=== PATIENT | female | born 1945 | race Caucasian/White ===

== ENCOUNTER 2020-11-22 18:40 | Emergency (ER) | payer MEDICARE, SELFPAY ==
[2020-11-22 18:42] VITALS: BP 185/96; PULSE 91; RESP 15; TEMP 36.8; O2SAT 100; BMI 31.0
[2020-11-22 18:44] VITALS: BP 185/96; PULSE 90; RESP 15; O2SAT 99
--- NOTE | 2020-11-22 18:48 | RAD_ITS ---
STUDY: X-RAY - LEFT SHOULDER REASON FOR EXAM: Female, 75 years old. shoulder dislocation TECHNIQUE: 2 view(s) of the shoulder. COMPARISON: None. FINDINGS: Dislocated shoulder prosthesis is noted without definitive evidence for acute fracture. RAD/Shoulder min 2 Views IMPRESSION: Dislocated left shoulder prosthesis Electronically Signed: Parth Johnson MD at 19:31 EDT , Service support ,
[2020-11-22] MEDS: Morphine 4 MG/ML Syringe IV (19:09)
[2020-11-22] MEDS: Ondansetron 4 MG/2 ML Vial IV (19:09)
--- NOTE | 2020-11-22 19:11 | EX.ED.UPPERE ---
HPI History of Present Illness Chief Complaint: Upper Extremity Injury Narrative Narrative: 75-year-old female presenting with left shoulder pain. She has a history of bilateral shoulder replacements from [place] distantly. She states that intermittently she has a left shoulder dislocation. She denies any trauma but states she rolled over on her left side and her left shoulder dislocated. She usually can get these back into place. She is unable to do that today. She states that she just moved here from [place] on November 11. She denies any paresthesias. PFSH PFS Medical History Diabetes Former smoker Hyperlipidemia Hypertension Kidney disease Home Medications hydrocodone-acetaminophen 1 tab PO Q6H PRN 3 Days #12 tablet 11/22/20 [Rx Last Taken Unknown] Allergy/AdvReac Type Severity Reaction Status Date / Time Penicillins [PCN] Allergy PT UNSURE Verified 11/22/20 18:41 OF REACTION Surgical History History of replacement of both shoulder joints Social History Smoking Status: Former smoker ROS ROS ED Constitutional Constitutional ED: Denies chills or fever(s) Eyes Eyes: Denies blurry vision or change in vision ENT ENT ED: Denies rhinorrhea or sore throat Cardiovascular Cardiovascular: Denies chest pain or palpitations Respiratory/Chest Respiratory/Chest: Denies cough or dyspnea Gastrointestinal Gastrointestinal: Denies abdominal pain or nausea Genitourinary Genitourinary ED: Denies dysuria or hematuria Musculoskeletal Musculoskeletal: Reports other Details: Left shoulder pain Integumentary Denies Abrasions or rash Neurologic Neurologic: Denies headache(s), paresthesias or weakness EXAM Physical Exam Const Vital Signs: 11/22/20 18:42 11/22/20 18:44 Temperature 98.3 F Temperature Source Oral Pulse Rate 91 90 Respiratory Rate 15 15 Blood Pressure 185/96 H 185/96 H Blood Pressure Mean 125 125 Pulse Ox 100 99 Oxygen Delivery Method Room Air Room Air Positive well nourished General Appearance ED: NAD HEENT normocephalic and atraumatic Eyes PERRL and EOMs intact bilaterally Resp normal respiratory effort and clear to auscultation bilaterally Cardio regular rate and regular rhythm Extremity Extremity Narrative: Left shoulder obvious deformity with limited mobility. No sensory deficits. Left radial pulse 2+. Neuro oriented x3 Sensorium / Orientation: alert Psych mental status grossly normal Skin Lesions: no lesions Rashes: no rashes MDM MDM MDM Narrative Medical decision making narrative: Patient presenting with obvious dislocation of the left shoulder. On the left shoulder x-ray this does appear to be anterior and superior on my interpretation. The radiologist just read this as dislocated prosthesis. Patient was given IV morphine for pain initially. She was consented for conscious sedation with propofol. Risks and benefits were described to her. She acknowledges understanding. Her last meal was about 12 hours ago. Timeout was called prior to procedure. She was initially given a 40 mg burst of propofol which did sedate her mildly. She was given 20 mg increments of propofol with a total of 140 mg given. Patient was sedated thoroughly. Patient's left shoulder was reduced using traction with external rotation and also guiding the prosthesis with my left hand into position. Patient had range of motion while still sedated. Patient placed in a sling. Postreduction films were obtained and on my interpretation the post reduction films show good reduction of the left shoulder prosthesis. The radiologist does agree. Patient was given [place] for pain for home. She is given follow-up with orthopedics. Patient discharged home with a ride from family. Impression: 1. Left shoulder dislocation status post reduction Discharge Plan Triage Chief Complaint: Upper Extremity Injury ED Provider: Bertram Grady Dx/Rx/DC Orders Instructions: ED Dislocation: Shoulder (Reduced) Prescriptions: New hydrocodone-acetaminophen 5-325 mg tablet 1 tab PO Q6H PRN (Reason: pain) 3 Days Qty: 12 RF: 0 Primary Care Provider: Care Physician,No Primary Referrals: Jim Esteban DO [STAFF PHYSICIAN] - 3-5 Days Care Physician,No Primary [Primary Care Provider] - Disposition Disposition: Home, Self Care
[2020-11-22 19:44] VITALS: BP 158/91; BP 179/103; BP 198/86; BP 200/89; BP 91/62; PULSE 82; PULSE 87; PULSE 88; RESP 14; RESP 16; RESP 18; O2SAT 100; O2SAT 98; O2SAT 99
--- NOTE | 2020-11-22 19:57 | RAD_ITS ---
STUDY: X-RAY - LEFT SHOULDER REASON FOR EXAM: Female, 75 years old. post reduction TECHNIQUE: 2 view(s) of the shoulder. COMPARISON: 11/22/2020 FINDINGS: Previously noted dislocated left shoulder prosthesis has been reduced with quaker of joint to normal anatomic configuration. No associated fracture identified. RAD/Shoulder min 2 Views IMPRESSION: Status post reduction of left shoulder joint prosthesis. Electronically Signed: Parth Johnson MD at 20:37 EDT , Service support ,
[2020-11-22] MEDS: Propofol 200 MG/20 ML Vial IV BOLUS (20:09)
[2020-11-22 20:10] VITALS: BP 158/91; PULSE 84; RESP 18; O2SAT 97; O2SAT 98
[2020-11-22 21:51] VITALS: BP 146/79; PULSE 90; RESP 15; O2SAT 98
== END 2020-11-22 21:51 | disposition home or self-care (01) ==
PROVIDERS: Emergency Provider Student in an Organized Health Care Education/Training Program
DX: T84.028A Dislocation of other internal joint prosthesis, initial encounter (principal); Y79.2 Prosthetic and other implants, materials and accessory orthopedic devices associated with adverse incidents; Y92.9 Unspecified place or not applicable; E11.9 Type 2 diabetes mellitus without complications; I10 Essential (primary) hypertension; E78.5 Hyperlipidemia, unspecified; Z87.891 Personal history of nicotine dependence; Z96.612 Presence of left artificial shoulder joint
CPT/HCPCS: 23650; 73030; 96374; 96375; 99152; 99153; 99284; J7030; A4216; J2405

== ENCOUNTER 2020-11-26 08:15 | Emergency (ER) | payer MEDICARE, SELFPAY ==
[2020-11-26 08:16] VITALS: BP 176/91; PULSE 86; RESP 16; TEMP 36.9; O2SAT 96; BMI 31.6
--- NOTE | 2020-11-26 08:42 | RAD_ITS ---
STUDY: X-RAY - LEFT SHOULDER REASON FOR EXAM: Female, 75 years old. Pain, history of dislocation TECHNIQUE: 2 view(s) of the shoulder. COMPARISON: 11/30/2020 FINDINGS: Left shoulder prosthesis appears to be in stable alignment and position since previous exam allowing for the significant difference in technique. Normal acromioclavicular joint. Normal acromion. No evidence for acute fracture. The soft tissue structures are unremarkable. Normal visualized pulmonary apex. RAD/Shoulder min 2 Views IMPRESSION: Left shoulder prosthesis. No definite dislocation. Electronically Signed: Ryan Aguilar MD at 9:17 EDT Tel , Service support ,
--- NOTE | 2020-11-26 08:44 | EX.ED.UPPERE ---
HPI History of Present Illness HPI Narrative: Patient presents via EMS with left shoulder pain/shoulder dislocation. She states that she has history of previous dislocations. She was seen in the emergency department a few days ago, where she had a left shoulder dislocation. She states that she was supposed to follow-up with orthopedics yesterday, Saturday, but was confused and thought that yesterday was . She lives at home with her daughter who did not know of her appointment. She denies any fall or injury but states that this morning approximately an hour and 15 minutes ago, she was not wearing her sling and she was washing dishes, and her left shoulder dislocated. She states that it was out for approximately 15 minutes. Prior to EMS arrival, she states that her shoulder self relocated. She is right-hand dominant. She denies any fall onto her left shoulder, no other injury. Chief Complaint: Disclocation [facility] Medical History Diabetes Former smoker Hyperlipidemia Hypertension Kidney disease Home Medications hydrocodone-acetaminophen 1 tab PO Q6H PRN 3 Days #12 tablet 11/22/20 [Rx Last Taken Unknown] Allergy/AdvReac Type Severity Reaction Status Date / Time Penicillins [PCN] Allergy PT UNSURE Verified 11/26/20 08:18 OF REACTION Surgical History History of replacement of both shoulder joints Social History Smoking Status: Former smoker ROS ROS ED ROS Narrative Constitutional: No fever, no chills. HEENT: No sore throat. No neck pain. No loss of vision. No rhinorrhea. Cardiovascular: No chest pain. No palpitations. No pedal edema. Respiratory: No cough, no shortness of breath. Abdominal: No abdominal pain. No nausea. No vomiting. Genitourinary: No dysuria. No hematuria. Musculoskeletal: No myalgias. Left shoulder pain with dislocation, but reported relocation prior to arrival Neurologic: No headaches. No dizziness. No lightheadedness. Skin: No rash. No change in color. Psychiatric: No depression. No anxiety. EXAM Physical Exam Narrative Exam Narrative: Afebrile. Vital signs noted. HEENT: Normocephalic. Atraumatic. PERRL, EOMI. Neck soft and supple. No point tenderness or step off. Cardiovascular: Regular rate and rhythm. No murmurs, rubs, or gallops appreciated. Respiratory: No tachypnea. Lungs clear to auscultation bilaterally. Gastrointestinal: Abdomen soft, nontender, with normoactive bowel sounds. No rebound or guarding. Neurological: Awake. Alert. Nonfocal, nonlateralizing. Skin: No rash. Normal color. No pallor. Musculoskeletal: No pedal edema. Left upper extremity in sling. Diffuse tenderness to palpation left shoulder/proximal humerus. Neurovascularly intact with palpable radial pulse on the left. Able to oppose thumb. Range of motion limited secondary to sling, left shoulder Const Vital Signs: 11/26/20 08:16 Temperature 98.5 F Temperature Source Oral Pulse Rate 86 Respiratory Rate 16 Blood Pressure 176/91 H Blood Pressure Mean 119 Pulse Ox 96 Oxygen Delivery Method Room Air MDM MDM MDM Narrative Medical decision making narrative: Patient has not taken her morning medications. I am unsure as to what they are. Her blood pressure is slightly elevated but she is asymptomatic with it. X-rays were obtained of the left shoulder to ensure articulation. X-ray results have returned which show that it is stable allowing for different techniques, that there is no evidence of overt dislocation. I encouraged the patient to wear her sling and have limited use of her left shoulder so it does not dislocate again. She will continue her pain medications and her antihypertensives and follow-up with her orthopedic surgeon on Saturday. Return instructions to the emergency department were reviewed. I feel she be discharged safely home. Disposition is discharged home in stable condition. Discharge Plan Triage Chief Complaint: Disclocation ED Provider: Chris Dey Dx/Rx/DC Orders Clinical Impression: Shoulder dislocation, Encounter for medical screening examination, Hypertension Instructions: ED Dislocation: Shoulder (Reduced), ED Hypertension, Established, ED Sling and Swathe Prescriptions: No Action hydrocodone-acetaminophen 5-325 mg tablet 1 tab PO Q6H PRN (Reason: pain) 3 Days Qty: 12 RF: 0 Primary Care Provider: Care Physician,No Primary Referrals: Jim Esteban DO [STAFF PHYSICIAN] - 11/28/20 Care Physician,No Primary [Primary Care Provider] - Disposition Disposition: Home, Self Care Discharge Date/Time: 11/26/20 09:51
== END 2020-11-26 09:51 | disposition home or self-care (01) ==
PROVIDERS: Emergency Provider Emergency Medicine
DX: M24.412 Recurrent dislocation, left shoulder (principal); E11.9 Type 2 diabetes mellitus without complications; I10 Essential (primary) hypertension; E78.5 Hyperlipidemia, unspecified; N28.9 Disorder of kidney and ureter, unspecified; Z96.611 Presence of right artificial shoulder joint; Z96.612 Presence of left artificial shoulder joint; Z87.891 Personal history of nicotine dependence
CPT/HCPCS: 73030; 99284

== ENCOUNTER → 2020-12-16 14:09 | Outpatient (CLI) | payer MEDICARE, SELFPAY ==
[2020-12-16 14:59] LABS: Absolute Lymphocyte Count 2.01 X10^3/uL (0.83-4.51); Absolute Neutrophil Count 4.2 X10^3/uL (2.0-7.7); Basophil# 0.07 X10^3/uL; Eosinophil# 0.14 X10^3/uL; Hematocrit 37.8 % (37-47); Lymphocyte # 2.01 X10^3/ul (0.83-4.51); Lymphocyte % 28.4 % (19-41); Mean Corp Hgb Conc 31.7 g/dL (32-36); Mean Corpuscular Hgb 29.1 pg (27.0-32.0); Mean Corpuscular Volume 91.5 fL (81-99); Mean Platelet Vol. 12.1 fl (6.2-12.0); Monocyte# 0.56 X10^3/uL; Monocyte% 7.9 % (0-10); NRBC Flagged by Analyzer 0 % (0-5); Neutrophil # 4.24 X10^3/uL (2.7-7.7); Neutrophil % 59.9 % (47-70); Platelet Count 202 K/mm3 (150-450); RBC Distribution Width CV 15.3 % (11.6-14.6); RBC Distribution Width SD 51.3 fl (35.1-43.9); Red Blood Count 4.13 M/mm3 (4.2-5.4); White Blood Count 7.1 K/mm3 (4.4-11.0)
[2020-12-16 15:02] LABS: Erythrocyte Sedimentation Rate 14 mm/hr (0-30)
[2020-12-16 15:10] LABS: Anion Gap 9 (5-15); BUN 19 mg/dL (7-18); BUN/Creat Ratio 16.2 RATIO (10-20); CRP < 2.90 mg/L (0.0-3.0); Calcium,Total 8.2 mg/dL (8.5-10.1); Chloride 108 mmol/L (98-107); Creatinine, Serum 1.17 mg/dL (0.55-1.02); EST Glomerular Filtration Rate 48 mL/min (>60); Est Glom Filt Rate - Afr Amer 58 mL/min (>60); Glucose 214 mg/dL (74-106); Potassium 3.5 mmol/L (3.5-5.1); Sodium Level 141 mmol/L (136-145)
[2020-12-16 15:21] LABS: Hemoglobin A1c 6.4 % (3.8-5.6)
== END ==
PROVIDERS: Visit Provider Physician Assistant Surgical
DX: E11.69 Type 2 diabetes mellitus with other specified complication (principal); Z96.612 Presence of left artificial shoulder joint
CPT/HCPCS: 36415; 80048; 83036; 85025; 85652; 86140

== ENCOUNTER 2020-12-28 23:12 | Emergency (ER) | payer MEDICARE, SELFPAY ==
[2020-12-28 23:20] VITALS: BP 179/75; PULSE 83; RESP 18; TEMP 36.4; O2SAT 96; BMI 33.0
--- NOTE | 2020-12-28 23:36 | RAD_ITS ---
HISTORY: dislocation COMPARISON: November 26, 2020 FINDINGS: # of images incl. paperwork: 2 XR Shoulder Min 2 Views: SOFT TISSUES: No radiodense soft tissue foreign body. No abnormal soft tissue mineralization. OSSEOUS: Left shoulder arthroplasty with superior anterior dislocation of humeral prosthesis relative to the glenoid prosthesis. No fracture. Mild acromioclavicular osteoarthritis. No aggressive osseous lesion. BONE MINERALIZATION: Unremarkable. RAD/Shoulder min 2 Views IMPRESSION: Anterior superior dislocation of left glenohumeral arthroplasty. at 0014 Reported and signed by: Luis Gusman MD Electronically Signed: Luis Gusman MD at 0:13 EST Tel , Service support ,
[2020-12-29] MEDS: Morphine 4 MG/ML Syringe IV
[2020-12-29] MEDS: Ondansetron 4 MG/2 ML Vial IV (00:01)
--- NOTE | 2020-12-29 01:14 | EX.ED.UPPERE ---
HPI <Dr. Bertram Grady DO - Last Filed: 12/29/20 03:48> History of Present Illness Chief Complaint: Upper Extremity Injury Narrative Narrative: 75-year-old female presenting with left shoulder dislocation. Patient states this is a chronic issue. She rolled over in bed and dislocated. 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 She states she followed up with an orthopedic surgeon here in [place] but she cannot recall his name. Patient states that she is currently try to get a primary care physician established so he can she can get medically cleared for surgery to fix her left shoulder. [facility] <Dr. Bertram Grady DO - Last Filed: 12/29/20 03:48> [facility] Medical History Diabetes Former smoker Hyperlipidemia Hypertension Kidney disease Home Medications hydrocodone-acetaminophen 1 tab PO Q6H PRN 3 Days #12 tablet 11/22/20 [Rx Last Taken Unknown] allopurinol 100 mg tablet 100 mg PO BID 11/30/20 [History Last Taken Unknown] amlodipine 2.5 mg tablet 2.5 mg PO DAILY 11/30/20 [History Last Taken Unknown] aspirin 81 mg tablet,delayed release 81 mg PO DAILY 11/30/20 [History Last Taken Unknown] atorvastatin 20 mg tablet 20 mg PO DAILY 11/30/20 [History Last Taken Unknown] biotin 10,000 mcg capsule mcg PO 11/30/20 [History Last Taken Unknown] buspirone 5 mg tablet 5 mg PO BID 11/30/20 [History Last Taken Unknown] calcium carbonate 600 mg calcium (1,500 mg) tablet 600 mg PO DAILY 11/30/20 [History Last Taken Unknown] cholecalciferol (vitamin D3) 50 mcg (2,000 unit) capsule 50 mcg PO DAILY 11/30/20 [History Last Taken Unknown] denosumab 60 mg/mL subcutaneous syringe 60 mg SUBCUT [id number] 11/30/20 [History Last Taken Unknown] gabapentin 300 mg capsule 900 mg PO TID cap 11/30/20 [History Last Taken Unknown] glipizide 10 mg tablet 10 mg PO BID 11/30/20 [History Last Taken Unknown] leflunomide 20 mg tablet 20 mg PO DAILY PRN 11/30/20 [History Last Taken Unknown] levothyroxine 100 mcg capsule 100 mcg PO DAILY 11/30/20 [History Last Taken Unknown] magnesium 250 mg tablet 250 mg PO DAILY 11/30/20 [History Last Taken Unknown] mecobalamin (vitamin B12) 1,000 mcg disintegrating tablet,sublingual 1,000 mcg SUBLINGUAL DAILY 11/30/20 [History Last Taken Unknown] multivitamin with minerals-folic acid 200 mcg chewable tablet tab PO 11/30/20 [History Last Taken Unknown] pantoprazole 40 mg tablet,delayed release 40 mg PO DAILY 11/30/20 [History Last Taken Unknown] sitagliptin 50 mg tablet 100 mg PO DAILY tab 11/30/20 [History Last Taken Unknown] upadacitinib 15 mg tablet,extended release 24 hr 15 mg PO DAILY 11/30/20 [History Last Taken Unknown] hydrocodone-acetaminophen 1 tab PO Q6H PRN PRN 3 Days #10 tablet 12/29/20 [Rx Last Taken Unknown] Allergy/AdvReac Type Severity Reaction Status Date / Time Penicillins [PCN] Allergy PT UNSURE Verified 12/28/20 23:22 OF REACTION Surgical History History of replacement of both shoulder joints Social History household members: none housing: house pets and animals: Yes pets and animals: dog(s) Smoking Status: Former smoker alcohol intake: never what type of physical activity do you participate in: none do you feel safe at home: Yes ROS <Dr. Bertram Grady DO - Last Filed: 12/29/20 03:48> ROS ED Constitutional Constitutional ED: Denies fever(s) or subjective Eyes Eyes: Denies blurry vision or change in vision ENT ENT ED: Denies rhinorrhea Cardiovascular Cardiovascular: Denies chest pain or palpitations Respiratory/Chest Respiratory/Chest: Denies cough or dyspnea Gastrointestinal Gastrointestinal: Denies abdominal pain, nausea or vomiting Genitourinary Genitourinary ED: Denies dysuria or hematuria Musculoskeletal Musculoskeletal: Reports other Details: Left shoulder pain Integumentary Denies abscess or rash Neurologic Neurologic: Denies headache(s) or paresthesias Psychiatric Psychiatric: Denies anxiety or depression EXAM <Dr. Bertram Grady DO - Last Filed: 12/29/20 03:48> Physical Exam Const Vital Signs: 12/28/20 23:20 Temperature 97.6 F L Temperature Source Temporal Pulse Rate 83 Respiratory Rate 18 Blood Pressure 179/75 H Blood Pressure Mean 109 Pulse Ox 96 Oxygen Delivery Method Room Air Positive well nourished General Appearance ED: NAD HEENT normocephalic and atraumatic Resp normal respiratory effort and clear to auscultation bilaterally Cardio regular rate and regular rhythm Extremity Extremity Narrative: Obvious deformity left shoulder. Tender to palpation. Appears to be dislocated. Left upper extremity neurovascular intact with respect refill all 5 fingers Neuro oriented x3 Sensorium / Orientation: alert Psych mental status grossly normal Skin Lesions: no lesions Rashes: no rashes [facility] <Dr. Bertram Grady, DO - Last Filed: 12/29/20 03:48> [facility] Narrative Medical decision making narrative: Patient evaluated for shoulder dislocation. Due to patient volumes Dr. Rodas did do the reduction. Please see procedure note. Afterwards patient was reevaluated and feels well. Her pain is minimal. She was to be discharged home. My interpretation of the postreduction x-ray shows a successful reduction of the left shoulder dislocation. The radiologist does agree. Impression: 1. Left shoulder dislocation Radiography Diagnostic Testing: Clinical Impression(s) from Imaging Studies Shoulder X-Ray 12/28/20 23:36 IMPRESSION: Anterior superior dislocation of left glenohumeral arthroplasty. at 0014 Reported and signed by: Luis Gusman MD Electronically Signed: Luis Gusman MD at 0:13 EST Tel , Service support , <Dr. Jason Chen, DO - Last Filed: 12/31/20 15:59> [facility] Narrative Medical decision making narrative: X-rays of the left shoulder were reviewed. There are 2 views. On my interpretation, there is anterior superior dislocation of the left glenohumeral joint. There is no acute fracture. Radiologist also interpreted the x-rays and agrees. Patient was informed of the risks and benefits of conscious sedation. Patient states she has had this procedure done before. Patient understands the risks and benefits. Patient is agreeable to proceed with the sedation and reduction of the shoulder. Verbal and written consent were obtained. Patient was placed on continuous cardiac and pulse oximetry monitors. Patient was placed on oxygen. Patient was given a total of 130 mg of propofol. The left shoulder was reduced using traction countertraction technique. Patient was placed in a sling and swath. Repeat x-rays were obtained. Patient felt better after the procedure was performed. Patient became more awake and alert. Patient had no hypoxic episodes. Patient had no dysrhythmias. Patient was instructed to maintain a sling and swath. Patient was instructed to follow-up with orthopedics in 5 to 7 days. Patient understood and was agreeable with the plan. All questions were answered. <Dr. Jason Chen, DO - Last Filed: 12/31/20 15:59> Other Procedures Procedure(s): Reduction of left shoulder dislocation: The patient was consented for reduction of the shoulder under moderate sedation. Patient was given a total of 130 mg of propofol. The shoulder was reduced using traction countertraction technique. There were no hypoxic episodes. There were no cardiac dysrhythmias. Patient tolerated the procedure well. Repeat shoulder x-rays were obtained. The shoulder was adequately reduced. There are no acute fractures. Sling and swath was applied. Patient was awake and alert after the procedure. Discharge Plan Triage Chief Complaint: Upper Extremity Injury ED Provider: Bertram Grady Dx/Rx/DC Orders Clinical Impression: Recurrent dislocation of left shoulder Instructions: ED Dislocation: Shoulder (Reduced), ED Sling and Swathe Prescriptions: New hydrocodone-acetaminophen 5-325 mg tablet 1 tab PO Q6H PRN PRN (Reason: Pain) 3 Days Qty: 10 RF: 0 No Action allopurinol 100 mg tablet 100 mg PO BID RF: 0 amlodipine 2.5 mg tablet 2.5 mg PO DAILY RF: 0 atorvastatin 20 mg tablet 20 mg PO DAILY RF: 0 biotin 10,000 mcg capsule PO RF: 0 buspirone 5 mg tablet 5 mg PO BID RF: 0 gabapentin 300 mg capsule 900 mg PO TID RF: 0 glipizide 10 mg tablet 10 mg PO BID RF: 0 Januvia 50 mg tablet 100 mg PO DAILY RF: 0 levothyroxine 100 mcg capsule 100 mcg PO DAILY RF: 0 leflunomide 20 mg tablet 20 mg PO DAILY PRNRF: 0 pantoprazole 40 mg tablet,delayed release (DR/EC) 40 mg PO DAILY RF: 0 Rinvoq 15 mg tablet extended release 24 hr 15 mg PO DAILY RF: 0 Prolia 60 mg/mL syringe 60 mg subcut [id number] RF: 0 aspirin 81 mg tablet,delayed release (DR/EC) 81 mg PO DAILY RF: 0 mecobalamin (vitamin B12) 1,000 mcg tablet,disintegrating 1,000 mcg sublingual DAILY RF: 0 cholecalciferol (vitamin D3) 50 mcg (2,000 unit) capsule 50 mcg PO DAILY RF: 0 magnesium 250 mg tablet 250 mg PO DAILY RF: 0 Vitajoy Adult Multi 200 mcg tablet,chewable PO RF: 0 calcium carbonate [Calcium 600] 600 mg calcium (1,500 mg) tablet 600 mg PO DAILY RF: 0 hydrocodone-acetaminophen 5-325 mg tablet 1 tab PO Q6H PRN (Reason: pain) 3 Days Qty: 12 RF: 0 Primary Care Provider: Care Physician,No Primary Referrals: Raymon Rome DO [STAFF PHYSICIAN] - 5-7 Days Care Physician,No Primary [Primary Care Provider] - Disposition Disposition: Home, Self Care Discharge Date/Time: 12/29/20 04:12
[2020-12-29 02:43] VITALS: BP 170/64; BP 173/64; BP 217/152; PULSE 73; PULSE 78; PULSE 80; RESP 16; RESP 18; O2SAT 95; O2SAT 97; O2SAT 98
[2020-12-29 02:54] VITALS: BP 140/73; PULSE 71; RESP 17; O2SAT 95
--- NOTE | 2020-12-29 02:56 | RAD_ITS ---
HISTORY: Post reduction COMPARISON: December 28, 2020 FINDINGS: # of images incl. paperwork: 1 XR Shoulder 1 View: SOFT TISSUES: No radiodense soft tissue foreign body. No abnormal soft tissue mineralization. OSSEOUS: Normal alignment of left glenohumeral arthroplasty. Normal acromioclavicular alignment. No fracture. No daren-hardware lucency or evidence of hyperplasia . No erosion or periostitis. BONE MINERALIZATION: Unremarkable. RAD/Shoulder One View IMPRESSION: Successful reduction of left glenohumeral arthroplasty. No evidence of fracture. at 0324 Reported and signed by: Luis Gusman MD Electronically Signed: Luis Gusman MD at 3:23 EST Tel , Service support ,
[2020-12-29 03:01] VITALS: BP 114/76; PULSE 71; RESP 17; O2SAT 93
[2020-12-29 03:02] VITALS: BP 114/76; O2SAT 94
[2020-12-29] MEDS: Propofol 200 MG/20 ML Vial IV BOLUS (03:05)
[2020-12-29 03:06] VITALS: BP 139/60; PULSE 71; RESP 14; O2SAT 93
[2020-12-29] MEDS: HYDROcodone Bitartrate/Apap 5/325 Tablet PO (04:11)
== END 2020-12-29 04:12 | disposition home or self-care (01) ==
PROVIDERS: Emergency Provider Student in an Organized Health Care Education/Training Program
DX: M24.412 Recurrent dislocation, left shoulder (principal); E11.9 Type 2 diabetes mellitus without complications; I10 Essential (primary) hypertension; E78.5 Hyperlipidemia, unspecified; Z79.82 Long term (current) use of aspirin; Z79.84 Long term (current) use of oral hypoglycemic drugs; Z79.890 Hormone replacement therapy; Z79.899 Other long term (current) drug therapy; Z87.891 Personal history of nicotine dependence; Z96.612 Presence of left artificial shoulder joint; Z96.611 Presence of right artificial shoulder joint
CPT/HCPCS: 23650; 73020; 73030; 96374; 96375; 99285; J7040; A4216; J2405

== ENCOUNTER 2021-01-01 03:23 | Emergency (ER) | payer MEDICARE, SELFPAY ==
[2021-01-01] VITALS (8 sets, daily range): BP systolic 179–241; BP diastolic 80–158; PULSE 69–86; RESP 16–18; TEMP 36.1; O2SAT 90–100; BMI 31.1
--- NOTE | 2021-01-01 03:32 | EX.ED.UPPERE ---
HPI History of Present Illness Chief Complaint: Upper Extremity Injury Detail of Chief Complaint: Recurrent left shoulder dislocation Informant: patient Onset/Context/Timing Onset: Today and Hours Context: Sudden Onset Timing: Continuous Quality of Pain: Sharp Current Severity: Moderate Maximum Severity: Moderate Associated Symptoms Associated Symptoms: Negative for Parasthesia and Weakness Narrative Narrative: 75-year-old female who has had bilateral reverse shoulder replacements. She had these done in [place]. Last several months she has had recurrent dislocations of the left shoulder. She is right-hand dominant. Tonight she was laying in bed rolled over in the left shoulder dislocated spontaneously. She denies any other complaints. She did not fall. This is happened several times before. Prior similar symptoms: Yes Recent Illness/Hospitalization: No PFSH PFSH Medical History Diabetes Former smoker Hyperlipidemia Hypertension Kidney disease Home Medications hydrocodone-acetaminophen 1 tab PO Q6H PRN 3 Days #12 tablet 11/22/20 [Rx Last Taken Unknown] allopurinol 100 mg tablet 100 mg PO BID 11/30/20 [History Last Taken Unknown] amlodipine 2.5 mg tablet 2.5 mg PO DAILY 11/30/20 [History Last Taken Unknown] aspirin 81 mg tablet,delayed release 81 mg PO DAILY 11/30/20 [History Last Taken Unknown] atorvastatin 20 mg tablet 20 mg PO DAILY 11/30/20 [History Last Taken Unknown] biotin 10,000 mcg capsule mcg PO 11/30/20 [History Last Taken Unknown] buspirone 5 mg tablet 5 mg PO BID 11/30/20 [History Last Taken Unknown] calcium carbonate 600 mg calcium (1,500 mg) tablet 600 mg PO DAILY 11/30/20 [History Last Taken Unknown] cholecalciferol (vitamin D3) 50 mcg (2,000 unit) capsule 50 mcg PO DAILY 11/30/20 [History Last Taken Unknown] denosumab 60 mg/mL subcutaneous syringe 60 mg SUBCUT [id number] 11/30/20 [History Last Taken Unknown] gabapentin 300 mg capsule 900 mg PO TID cap 11/30/20 [History Last Taken Unknown] glipizide 10 mg tablet 10 mg PO BID 11/30/20 [History Last Taken Unknown] leflunomide 20 mg tablet 20 mg PO DAILY PRN 11/30/20 [History Last Taken Unknown] levothyroxine 100 mcg capsule 100 mcg PO DAILY 11/30/20 [History Last Taken Unknown] magnesium 250 mg tablet 250 mg PO DAILY 11/30/20 [History Last Taken Unknown] mecobalamin (vitamin B12) 1,000 mcg disintegrating tablet,sublingual 1,000 mcg SUBLINGUAL DAILY 11/30/20 [History Last Taken Unknown] multivitamin with minerals-folic acid 200 mcg chewable tablet tab PO 11/30/20 [History Last Taken Unknown] pantoprazole 40 mg tablet,delayed release 40 mg PO DAILY 11/30/20 [History Last Taken Unknown] sitagliptin 50 mg tablet 100 mg PO DAILY tab 11/30/20 [History Last Taken Unknown] upadacitinib 15 mg tablet,extended release 24 hr 15 mg PO DAILY 11/30/20 [History Last Taken Unknown] hydrocodone-acetaminophen 1 tab PO Q6H PRN PRN 3 Days #10 tablet 12/29/20 [Rx Last Taken Unknown] Allergy/AdvReac Type Severity Reaction Status Date / Time Penicillins [PCN] Allergy PT UNSURE Verified 01/01/21 03:28 OF REACTION Surgical History History of replacement of both shoulder joints Social History household members: none housing: house pets and animals: Yes pets and animals: dog(s) Smoking Status: Former smoker alcohol intake: never what type of physical activity do you participate in: none do you feel safe at home: Yes ROS ROS ED ROS Narrative Denies recent illness. Review of Systems ROS Unobtainable: Denies due to encephalopathy Constitutional Constitutional ED: Denies fever(s) Eyes Eyes: Denies change in vision ENT ENT ED: Denies ear pain Cardiovascular Cardiovascular: Denies chest pain Respiratory/Chest Respiratory/Chest: Denies dyspnea Gastrointestinal Gastrointestinal: Denies abdominal pain Genitourinary Genitourinary ED: Denies dysuria Musculoskeletal Musculoskeletal: Denies myalgias Integumentary Denies rash Neurologic Neurologic: Denies headache(s) Psychiatric Psychiatric: Denies depression Endocrine Endocrinology: Denies polyuria Hematologic/Lymphatic Hematologic/Lymphatic: Denies easy bruising Allergic/Immunologic Allergic/Immunologic ED: Denies urticaria EXAM Physical Exam Narrative Exam Narrative: 75-year-old female vital signs stable blood pressure is elevated 241/89 most likely secondary to her left shoulder pain. HEENT exam unremarkable. Neck nontender. Lungs clear to auscultation bilaterally. Heart regular rhythm no murmur. Abdomen soft nontender normal bowel sounds no peritoneal signs. Extremities right upper both lower extremities are nontender. Left shoulder is tender to palpation. Appears to have gross deformity. The left elbow forearm wrist and hand are nontender. Normal central sterilization technician strength and sensation. Neurologically she is awake and alert. Const Vital Signs: 01/01/21 03:25 Temperature 97 F L Temperature Source Temporal Pulse Rate 83 Respiratory Rate 18 Blood Pressure 241/89 H Blood Pressure Mean 139 Pulse Ox 97 Oxygen Delivery Method Room Air Positive well nourished and well developed; Negative for obese, cachectic, contractures or unkempt General Appearance ED: well developed and NAD; Negative for unkempt, cachectic, contractures, cyanotic or diaphoretic Nutritional Appearance: Negative for cachectic or obese HEENT Reports moist mucous membranes normocephalic and atraumatic; Negative for trauma or tenderness Eyes PERRL and EOMs intact bilaterally Neck full ROM and supple General: Negative for tenderness Chest Wall inspection of chest normal and palpation of chest normal Resp normal respiratory effort and clear to auscultation bilaterally Auscultation: Negative for rales, rhonchi or wheezes Cardio regular rate, regular rhythm, S1 normal heart sound, S2 normal heart sound and no murmurs GI non-tender, non-distended and no masses Auscultation: normoactive bowel sounds Palpation: soft; Negative for tender or guarding Back/Spine no CVA tenderness Extremity normal to inspection and full ROM Extremity Narrative: Except the left shoulder which appears to have a gross abnormality most likely dislocated. Left hand is neurovascularly intact with normal cap refill, touch sensation in 5-5 central sterilization technician strength. General Extremety ED: Negative for edema General Extremity: Negative for edema Neuro oriented x3 Sensorium / Orientation: alert, oriented to person, oriented to place and oriented to time Motor Exam: strength 5/5 throughout Psych mental status grossly normal Appearance: Negative for unkempt Mood & Affect: Negative for depressed or tearful Skin Lesions: no lesions Rashes: no rashes MDM MDM MDM Narrative Medical decision making narrative: 75-year-old with recurrent prosthetic left shoulder dislocations. She will be treated with IV morphine and Zofran for pain. X-ray being obtained. If the shoulder is dislocated which I suspect it will be reduced using traction countertraction and patient being consciously sedated with propofol. She last ate around 5 PM which was more than 10 hours ago. Post left shoulder reduction patient is doing well at 5:07 AM. She will be watched post conscious sedation. And discharged to home in a sling to follow-up with her orthopedic physician Dr. Joao Villegas. Radiography Diagnostic Testing: Left shoulder x-ray 2 views interpreted by myself shows and the radiologist shows a dislocated left shoulder prosthesis. Left shoulder x-ray #2 post reduction appears to have appropriate reduction of the prior shoulder dislocation interpreted by myself. Procedures Other Procedures Procedure(s): Left prosthetic shoulder dislocation reduction: Discussed procedure plan with patient. She had not eaten since 5 PM the night before. 11 hours ago. She has had no prior complications anesthetic. She has had this procedure done numerous times. She was initially given 60 of propofol then a second dose of 40 and then a third dose of 40 for a total of 140 mg. Entire time she was on the monitor and pulse oximeter. Using traction countertraction the dislocation was reduced. Post procedure films showed appropriate reduction. Patient woke up quickly and is currently resting comfortably. Discharge Plan Triage Chief Complaint: Upper Extremity Injury ED Provider: Terrance Balbuena Dx/Rx/DC Orders Clinical Impression: Shoulder dislocation, recurrent, Hx of reduction of closed dislocation, History of conscious sedation Instructions: ED Joint Dislocation, ED Dislocation: Shoulder (Reduced) Prescriptions: No Action allopurinol 100 mg tablet 100 mg PO BID RF: 0 amlodipine 2.5 mg tablet 2.5 mg PO DAILY RF: 0 atorvastatin 20 mg tablet 20 mg PO DAILY RF: 0 biotin 10,000 mcg capsule PO RF: 0 buspirone 5 mg tablet 5 mg PO BID RF: 0 gabapentin 300 mg capsule 900 mg PO TID RF: 0 glipizide 10 mg tablet 10 mg PO BID RF: 0 Januvia 50 mg tablet 100 mg PO DAILY RF: 0 levothyroxine 100 mcg capsule 100 mcg PO DAILY RF: 0 leflunomide 20 mg tablet 20 mg PO DAILY PRNRF: 0 pantoprazole 40 mg tablet,delayed release (DR/EC) 40 mg PO DAILY RF: 0 Rinvoq 15 mg tablet extended release 24 hr 15 mg PO DAILY RF: 0 Prolia 60 mg/mL syringe 60 mg subcut [id number] RF: 0 aspirin 81 mg tablet,delayed release (DR/EC) 81 mg PO DAILY RF: 0 mecobalamin (vitamin B12) 1,000 mcg tablet,disintegrating 1,000 mcg sublingual DAILY RF: 0 cholecalciferol (vitamin D3) 50 mcg (2,000 unit) capsule 50 mcg PO DAILY RF: 0 magnesium 250 mg tablet 250 mg PO DAILY RF: 0 Vitajoy Adult Multi 200 mcg tablet,chewable PO RF: 0 calcium carbonate [Calcium 600] 600 mg calcium (1,500 mg) tablet 600 mg PO DAILY RF: 0 hydrocodone-acetaminophen 5-325 mg tablet 1 tab PO Q6H PRN (Reason: pain) 3 Days Qty: 12 RF: 0 hydrocodone-acetaminophen 5-325 mg tablet 1 tab PO Q6H PRN PRN (Reason: Pain) 3 Days Qty: 10 RF: 0 Primary Care Provider: Care Physician,No Primary Referrals: Care Physician,No Primary [Primary Care Provider] - Activity Restrictions/Additional Instructions: Follow-up with the orthopedic physician to have your shoulder reevaluated. You may have to have this prior surgery revised so it does not keep dislocating. Tylenol for pain. The very careful with range of motion of the left shoulder you could re-dislocate it if you do much range of motion. Disposition Disposition: Home, Self Care
[2021-01-01] MEDS: Ondansetron 4 MG/2 ML Vial IV (03:39)
[2021-01-01] MEDS: morphine 8 MG/ML Syringe IV (03:40)
--- NOTE | 2021-01-01 03:55 | RAD_ITS ---
STUDY: X-RAY - LEFT SHOULDER REASON FOR EXAM: Female, 75 years old. Dislocation. TECHNIQUE: 2 view(s) of the shoulder. COMPARISON: December 29, 2020 at 2:56 AM. December 28, 2020. FINDINGS: Total left shoulder arthroplasty. Again noted is anterior superior dislocation of the humeral component relative to the glenoid component, similar in appearance to the study of December 28, 2020. No fracture or evidence of loosening. Normal visualized pulmonary apex. RAD/Shoulder min 2 Views IMPRESSION: Recurrent dislocation of the humeral component of a total shoulder arthroplasty. No fracture identified. Electronically Signed: Maik Ramsey MD at 4:16 EST , Service support ,
--- NOTE | 2021-01-01 04:56 | RAD_ITS ---
STUDY: X-RAY - LEFT SHOULDER REASON FOR EXAM: Female, 75 years old patient is status post closed reduction of dislocated shoulder prosthesis. TECHNIQUE: 2 view(s) of the shoulder. COMPARISON: Prereduction radiographs of the left shoulder dated 01/01/2021. FINDINGS: The patient has had a left shoulder arthroplasty. There is improved alignment of the prosthesis components compared to previous study. There is degenerative arthrosis of the acromioclavicular joint without inferior osseous spur formation. Normal acromion. There is demineralization of the humerus and visualized osseous structures. The soft tissue structures are unremarkable. There is no demonstrated fracture. Normal visualized pulmonary apex. RAD/Shoulder min 2 Views IMPRESSION: Technically successful closed reduction of dislocated shoulder prosthesis. Electronically Signed: Elizabet Sin MD at 5:45 EST , Service support ,
[2021-01-01] MEDS: Propofol 200 MG/20 ML Vial 40 MG IV BOLUS (05:04)
== END 2021-01-01 05:50 | disposition home or self-care (01) ==
PROVIDERS: Emergency Provider Emergency Medicine
DX: M24.412 Recurrent dislocation, left shoulder (principal); T84.028A Dislocation of other internal joint prosthesis, initial encounter; Y79.2 Prosthetic and other implants, materials and accessory orthopedic devices associated with adverse incidents; E11.9 Type 2 diabetes mellitus without complications; I10 Essential (primary) hypertension; E78.5 Hyperlipidemia, unspecified; Z79.82 Long term (current) use of aspirin; Z79.84 Long term (current) use of oral hypoglycemic drugs; Z79.890 Hormone replacement therapy; Z79.899 Other long term (current) drug therapy; Z87.891 Personal history of nicotine dependence; Z96.612 Presence of left artificial shoulder joint; Z96.611 Presence of right artificial shoulder joint
CPT/HCPCS: 23650; 73030; 96374; 96375; 99285; J7050; A4216; J2405

== ENCOUNTER 2021-01-22 18:34 | Emergency (ER) | payer MEDICARE, SELFPAY ==
[2021-01-22 18:35] VITALS: BP 167/92; PULSE 99; RESP 18; TEMP 36.2; O2SAT 100; BMI 28.1
[2021-01-22 18:57] LABS: Absolute Lymphocyte Count 1.16 X10^3/uL (0.83-4.51); Absolute Neutrophil Count 5.5 X10^3/uL (2.0-7.7); Basophil# 0.08 X10^3/uL; Basophil% 1.1 % (0-1); Eosinophil# 0.16 X10^3/uL; Eosinophils% 2.1 % (0-5); Hematocrit 38.4 % (37-47); Hemoglobin 12.3 g/dL (12.0-15.0); Lymphocyte # 1.16 X10^3/ul (0.83-4.51); Lymphocyte % 15.3 % (19-41); Mean Corpuscular Hgb 28.5 pg (27.0-32.0); Mean Corpuscular Volume 89.1 fL (81-99); Mean Platelet Vol. 10.9 fl (6.2-12.0); Monocyte# 0.65 X10^3/uL; Monocyte% 8.6 % (0-10); NRBC Flagged by Analyzer 0 % (0-5); Neutrophil # 5.47 X10^3/uL (2.7-7.7); Platelet Count 271 K/mm3 (150-450); RBC Distribution Width CV 14.7 % (11.6-14.6); RBC Distribution Width SD 47.9 fl (35.1-43.9); Red Blood Count 4.31 M/mm3 (4.2-5.4); White Blood Count 7.6 K/mm3 (4.4-11.0)
[2021-01-22 19:10] LABS: Anion Gap 12 (5-15); BUN 11 mg/dL (7-18); BUN/Creat Ratio 8.8 RATIO (10-20); Calcium,Total 9.4 mg/dL (8.5-10.1); Chloride 105 mmol/L (98-107); Creatinine, Serum 1.25 mg/dL (0.55-1.02); EST Glomerular Filtration Rate 44 mL/min (>60); Est Glom Filt Rate - Afr Amer 54 mL/min (>60); Glucose 220 mg/dL (74-106); Potassium 3.3 mmol/L (3.5-5.1); Sodium Level 139 mmol/L (136-145)
[2021-01-22 19:50] LABS: Bacteria 0 SEEN /hpf (None Seen); Mucous, Urine 0 SEEN /hpf (<or=2+); Red Blood Cells-Urine 0 SEEN /hpf (0-5); Squamous Epithelial Cells - UA 0 SEEN /hpf (5-10); White Blood Cells 0 SEEN /hpf (0-5)
[2021-01-22 19:55] LABS: Color, Urine Yellow (Yellow); Glucose, Dipstick Normal (Normal); Ketone-Dipstick 5 mg/dl (Negative); Leukocyte Esterase-Dipstick Negative /ul (Negative); Nitrite-Dipstick Negative (Negative); Occult Blood-Urine Negative /ul (Negative); Protein-Dipstick 30 mg/dl (Negative); Specific Gravity, Urine 1.015 (1.002-1.030); Urine Bilirubin Dipstick Negative (Negative); Urine Clarity Clear (Clear); Urine Urobilinogen Normal (Normal)
[2021-01-22] MEDS: Ondansetron 4 MG/2 ML Vial IV (20:18)
--- NOTE | 2021-01-22 20:35 | EDS_ITS ---
HPI History of Present Illness Chief Complaint: Nausea/Vomiting/Diarrhea Detail of Chief Complaint: Nausea and diarrhea for 1 week Informant: patient and family Onset/Context/Timing Onset: Weeks Context: Sudden Onset Timing: Continuous (Nausea has been continuous for 1 week) and Intermittent (Diarrhea is been intermittent 3-5 loose stools per night since onset) Quality: Watery Location: GI Current Severity: Mild Maximum Severity: Moderate Worsened by: Nothing Associated Symptoms Associated Symptoms: Thirst and dry mouth Narrative Narrative: Patient is a 75-year-old woman with history of recurrent left shoulder dislocation who presents with nausea x1 week. She does have history of diabetes. She denies history of gastroparesis. She also reports watery stool. She has not been in contact with anyone's been ill. She denies fever or chills. She denies headache. She denies visual, ocular auditory symptoms. She denies cardiac respiratory symptoms. She denies dysuria, frequency, urgency or hematuria. She denies decreased urine output. She denies blood or mucus in her diarrhea. She has not been on antibiotics recently. She has not noted a rash. Based on medication she must have a history of gout and hypertension as well. Prior similar symptoms: No PFSH PFSH Medical History Diabetes Former smoker Hyperlipidemia Hypertension Kidney disease Home Medications hydrocodone-acetaminophen 1 tab PO Q6H PRN 3 Days #12 tablet 11/22/20 [Rx Last Taken Unknown] allopurinol 100 mg tablet 100 mg PO BID 11/30/20 [History Last Taken Unknown] amlodipine 2.5 mg tablet 2.5 mg PO DAILY 11/30/20 [History Last Taken Unknown] aspirin 81 mg tablet,delayed release 81 mg PO DAILY 11/30/20 [History Last Taken Unknown] atorvastatin 20 mg tablet 20 mg PO DAILY 11/30/20 [History Last Taken Unknown] biotin 10,000 mcg capsule mcg PO 11/30/20 [History Last Taken Unknown] buspirone 5 mg tablet 5 mg PO BID 11/30/20 [History Last Taken Unknown] calcium carbonate 600 mg calcium (1,500 mg) tablet 600 mg PO DAILY 11/30/20 [History Last Taken Unknown] cholecalciferol (vitamin D3) 50 mcg (2,000 unit) capsule 50 mcg PO DAILY 11/30/20 [History Last Taken Unknown] denosumab 60 mg/mL subcutaneous syringe 60 mg SUBCUT [id number] 11/30/20 [History Last Taken Unknown] gabapentin 300 mg capsule 900 mg PO TID cap 11/30/20 [History Last Taken Unknown] glipizide 10 mg tablet 10 mg PO BID 11/30/20 [History Last Taken Unknown] leflunomide 20 mg tablet 20 mg PO DAILY PRN 11/30/20 [History Last Taken Unknown] levothyroxine 100 mcg capsule 100 mcg PO DAILY 11/30/20 [History Last Taken Unknown] magnesium 250 mg tablet 250 mg PO DAILY 11/30/20 [History Last Taken Unknown] mecobalamin (vitamin B12) 1,000 mcg disintegrating tablet,sublingual 1,000 mcg SUBLINGUAL DAILY 11/30/20 [History Last Taken Unknown] multivitamin with minerals-folic acid 200 mcg chewable tablet tab PO 11/30/20 [History Last Taken Unknown] pantoprazole 40 mg tablet,delayed release 40 mg PO DAILY 11/30/20 [History Last Taken Unknown] sitagliptin 50 mg tablet 100 mg PO DAILY tab 11/30/20 [History Last Taken Unknown] upadacitinib 15 mg tablet,extended release 24 hr 15 mg PO DAILY 11/30/20 [History Last Taken Unknown] hydrocodone-acetaminophen 1 tab PO Q6H PRN PRN 3 Days #10 tablet 12/29/20 [Rx Last Taken Unknown] Allergy/AdvReac Type Severity Reaction Status Date / Time Penicillins [PCN] Allergy PT UNSURE Verified 01/22/21 18:35 OF REACTION Surgical History History of replacement of both shoulder joints Social History household members: none housing: house pets and animals: Yes pets and animals: dog(s) Smoking Status: Former smoker alcohol intake: never what type of physical activity do you participate in: none do you feel safe at home: Yes ROS ROS ED Constitutional Constitutional ED: Denies chills, fever(s), subjective or sweats Eyes Eyes: Denies blurry vision, change in vision or diplopia ENT ENT ED: Denies ear pain, rhinorrhea or sore throat Cardiovascular Cardiovascular: Denies chest pain, orthopnea, palpitations or racing heartbeat Respiratory/Chest Respiratory/Chest: Denies cough, dyspnea, dyspnea on exertion, orthopnea or sputum Gastrointestinal Gastrointestinal: Denies abdominal pain, diarrhea, nausea or vomiting Genitourinary Genitourinary ED: Denies dysuria, hematuria or urinary frequency Musculoskeletal Musculoskeletal: Denies arthralgias, back pain, myalgias or neck pain Integumentary Denies Abrasions or rash Neurologic Neurologic: Reports weakness; Denies headache(s) or paresthesias Endocrine Endocrinology: Denies polydipsia, polyphagia or polyuria EXAM Physical Exam Const Vital Signs: 01/22/21 18:35 01/22/21 20:36 Temperature 97.2 F L Temperature Source Temporal Pulse Rate 99 Respiratory Rate 18 Blood Pressure 167/92 H Blood Pressure Mean 117 Pulse Ox 100 98 Oxygen Delivery Method Room Air Room Air Positive well nourished and well developed; Negative for obese, cachectic, contractures or unkempt General Appearance ED: well developed and NAD; Negative for unkempt, cachectic, contractures, cyanotic, diaphoretic or pallor Nutritional Appearance: Negative for cachectic or obese HEENT Reports TM's clear and dry mucous membranes Negative for trauma or tenderness Tympanic Membrane ED: Yes TM's clear Mouth ED: Yes dry mucous membranes Mouth: dry mucous membranes Eyes PERRL and EOMs intact bilaterally General Eye ED: Negative for pale conjunctiva or scleral icterus Neck no lymphadenopathy, supple and no JVD Resp normal respiratory effort and clear to auscultation bilaterally Cardio regular rate, regular rhythm, S1 normal heart sound, S2 normal heart sound and no murmurs GI normal to inspection, nondistended, normoactive bowel sounds, non-tender and non-distended Auscultation: normoactive bowel sounds Palpation: soft Back/Spine no CVA tenderness Cervical Spine: Negative for cervical spine tenderness Thoracic Spine / Upper Back: Negative for thoracic spinal tenderness or paraspinal muscle tenderness Extremity normal to inspection General Extremety ED: Negative for edema or tenderness General Extremity: Negative for edema Neuro oriented x3, CN's II-XII intact bilaterally and no sensory deficits noted Sensorium / Orientation: alert Motor Exam: Negative for strength 5/5 throughout Psych mental status grossly normal Appearance: Negative for unkempt Skin no rashes or lesions noted and no wounds General Skin Exam: Negative for jaundice or pallor MDM MDM MDM Narrative Medical decision making narrative: The patient having nausea and diarrhea need to evaluate for viral illness including Covid. CBC to assess white count and rule out anemia. Basic metabolic panel to assess renal function, anion gap and evaluate for hypokalemia. On exam she had tenderness in the right upper quadrant hepatic panel was added to the orders that were placed additionally by nursing staff. Lab Data Attestation: I reviewed the patient's lab results. Lab results narrative: Potassium is 3.3 which is below lower end of normal. P.o. potassium was ordered. Urine does reveal ketones consistent with poor caloric intake. Labs: Laboratory Results - last 24 hr 01/22/21 01/22/21 01/22/21 18:30 18:30 18:30 WBC 7.6 RBC 4.31 Hgb 12.3 Hct 38.4 MCV 89.1 MCH 28.5 MCHC 32.0 RDW Std Deviation 47.9 H RDW Coeff of Manpreet 14.7 H Plt Count 271 MPV 10.9 Immature Gran % (Auto) 0.900 Neut % (Auto) 72.0 H Lymph % (Auto) 15.3 L Brule % (Auto) 8.6 Eos % (Auto) 2.1 Baso % (Auto) 1.1 H Absolute Neuts (auto) 5.5 Absolute Lymphs (auto) 1.16 Nucleated RBC % 0 Sodium 139 Potassium 3.3 L Chloride 105 Carbon Dioxide 22.0 Anion Gap 12 BUN 11 Creatinine 1.25 H Estim Creat Clear Calc 38.40 Est GFR (MDRD) Af Amer 54 L Est GFR (MDRD) Non-Af 44 L BUN/Creatinine Ratio 8.8 L Glucose 220 H Calcium 9.4 Total Bilirubin 0.30 Direct Bilirubin 0.15 AST 18 ALT 17 Alkaline Phosphatase 77 Total Protein 7.0 Albumin 3.0 L Globulin 4.0 Urine Color Urine Clarity Urine pH Ur Specific Willards Urine Protein Urine Glucose (UA) Urine Ketones Urine Occult Blood Urine Nitrite Urine Bilirubin Urine Urobilinogen Ur Leukocyte Esterase Urine RBC Urine WBC Ur Squamous Epith Cells Urine Bacteria Urine Mucus 01/22/21 19:35 WBC RBC Hgb Hct MCV MCH MCHC RDW Std Deviation RDW Coeff of Manpreet Plt Count MPV Immature Gran % (Auto) Neut % (Auto) Lymph % (Auto) Brule % (Auto) Eos % (Auto) Baso % (Auto) Absolute Neuts (auto) Absolute Lymphs (auto) Nucleated RBC % Sodium Potassium Chloride Carbon Dioxide Anion Gap BUN Creatinine Estim Creat Clear Calc Est GFR (MDRD) Af Amer Est GFR (MDRD) Non-Af BUN/Creatinine Ratio Glucose Calcium Total Bilirubin Direct Bilirubin AST ALT Alkaline Phosphatase Total Protein Albumin Globulin Urine Color Yellow Urine Clarity Clear Urine pH 6.0 Ur Specific Willards 1.015 Urine Protein 30 H Urine Glucose (UA) Normal Urine Ketones 5 H Urine Occult Blood Negative Urine Nitrite Negative Urine Bilirubin Negative Urine Urobilinogen Normal Ur Leukocyte Esterase Negative Urine RBC 0 SEEN Urine WBC 0 SEEN Ur Squamous Epith Cells 0 SEEN Urine Bacteria 0 SEEN Urine Mucus 0 SEEN Discharge Plan Triage Chief Complaint: Nausea/Vomiting/Diarrhea ED Provider: Horace Rivera Dx/Rx/DC Orders Clinical Impression: Acute dehydration, Ketosis, Hypokalemia, Diarrhea Instructions: Dehydration, ED Diarrhea, Unknown Cause, ED Hypokalemia Prescriptions: No Action allopurinol 100 mg tablet 100 mg PO BID RF: 0 amlodipine 2.5 mg tablet 2.5 mg PO DAILY RF: 0 atorvastatin 20 mg tablet 20 mg PO DAILY RF: 0 biotin 10,000 mcg capsule PO RF: 0 buspirone 5 mg tablet 5 mg PO BID RF: 0 gabapentin 300 mg capsule 900 mg PO TID RF: 0 glipizide 10 mg tablet 10 mg PO BID RF: 0 Januvia 50 mg tablet 100 mg PO DAILY RF: 0 levothyroxine 100 mcg capsule 100 mcg PO DAILY RF: 0 leflunomide [Arava] 20 mg tablet 20 mg PO DAILY PRN (Reason: Pain) RF: 0 pantoprazole 40 mg tablet,delayed release (DR/EC) 40 mg PO DAILY RF: 0 Rinvoq 15 mg tablet extended release 24 hr 15 mg PO DAILY RF: 0 Prolia 60 mg/mL syringe 60 mg subcut [id number] RF: 0 aspirin 81 mg tablet,delayed release (DR/EC) 81 mg PO DAILY RF: 0 mecobalamin (vitamin B12) 1,000 mcg tablet,disintegrating 1,000 mcg sublingual DAILY RF: 0 cholecalciferol (vitamin D3) 50 mcg (2,000 unit) capsule 50 mcg PO DAILY RF: 0 magnesium 250 mg tablet 250 mg PO DAILY RF: 0 Vitajoy Adult Multi 200 mcg tablet,chewable PO RF: 0 calcium carbonate [Calcium 600] 600 mg calcium (1,500 mg) tablet 600 mg PO DAILY RF: 0 hydrocodone-acetaminophen 5-325 mg tablet 1 tab PO Q6H PRN (Reason: pain) 3 Days Qty: 12 RF: 0 hydrocodone-acetaminophen 5-325 mg tablet 1 tab PO Q6H PRN PRN (Reason: Pain) 3 Days Qty: 10 RF: 0 Primary Care Provider: Toyin Chau Referrals: Toyin Chau MD [Primary Care Provider] - 3-5 Days Disposition Disposition: Home, Self Care
[2021-01-22 20:36] VITALS: O2SAT 98
[2021-01-22 20:37] LABS: AST(SGOT) 18 U/L (15-37); Alanine Aminotransfer ALT/SGPT 17 U/L (13-56); Alkaline Phosphatase 77 U/L (45-117); Bilirubin, Direct 0.15 mg/dL (0.00-0.30)
[2021-01-22] MEDS: Potassium Chloride Oral Soln 20 MEQ/15 ML UDC 40 MEQ PO (21:52)
[2021-01-22 22:43] VITALS: BP 153/79; PULSE 70; RESP 17; O2SAT 98
== END 2021-01-22 22:46 | disposition home or self-care (01) ==
PROVIDERS: Emergency Provider Emergency Medicine; PCP Internal Medicine
DX: E86.0 Dehydration (principal); E87.6 Hypokalemia; R19.7 Diarrhea, unspecified; R11.2 Nausea with vomiting, unspecified; Z20.822 Contact with and (suspected) exposure to COVID-19; E88.89 Other specified metabolic disorders; E11.9 Type 2 diabetes mellitus without complications; Z79.82 Long term (current) use of aspirin; Z79.84 Long term (current) use of oral hypoglycemic drugs; Z87.891 Personal history of nicotine dependence; I10 Essential (primary) hypertension; E78.5 Hyperlipidemia, unspecified; Z96.612 Presence of left artificial shoulder joint; Z96.611 Presence of right artificial shoulder joint
CPT/HCPCS: 80048; 80076; 81001; 85025; 87426; 96361; 96374; 99283; J7030; J7050; A4216; J2405

== ENCOUNTER 2021-03-02 20:38 | Emergency (ER) | payer MEDICARE, SELFPAY ==
[2021-03-02 20:39] VITALS: BP 177/69; PULSE 102; RESP 18; TEMP 36.4; O2SAT 98; BMI 26.3
--- NOTE | 2021-03-02 21:03 | EKG12_ITS ---
Test Reason : GEN ILLNESS Blood Pressure : / mmHG Vent. Rate : 087 BPM Atrial Rate : 087 BPM P-R Int : 186 ms QRS Dur : 086 ms QT Int : 388 ms P-R-T Axes : 059 -39 050 degrees QTc Int : 466 ms Normal sinus rhythm Left axis deviation Anteroseptal infarct , age undetermined Abnormal ECG Confirmed by AYLIN MENDIOLA, STANSILAW ([id number]), greeting card editor RADAH WONG ([id number]) on 03/03/2021 1:26:13 PM Referred By: BRYANNA Confirmed By:STANISLAW VIERA MD
--- NOTE | 2021-03-02 21:10 | EX.ED.DYSGE1 ---
HPI History of Present Illness Chief Complaint: General Illness Informant: patient Onset/Context/Timing Onset: Weeks Context: Gradual Onset Timing: Continuous Current Severity: Mild Maximum Severity: Moderate Narrative Narrative: 76-year-old female history of hypertension, diabetes and chronic kidney disease. Recently moved up here from [place]. Says she has not felt well for the last 3 weeks. Decreased energy and increasing fatigue. Says when she walks across the room she is to sit down she gets so tired. She has had some diarrhea but no melena. No fever or chills. No nausea or vomiting. States she had a decreased appetite and has lost 23 pounds in the last 3 to 4 weeks. She previously weighed under 91 pounds and she is down to 168. She denies any urinary urgency nor frequency or dysuria. Prior similar symptoms: No Recent Illness/Hospitalization: No PFSH PFS Medical History Diabetes Former smoker Hyperlipidemia Hypertension Kidney disease Home Medications hydrocodone-acetaminophen 1 tab PO Q6H PRN 3 Days #12 tablet 11/22/20 [Rx Last Taken Unknown] allopurinol 100 mg tablet 100 mg PO BID 11/30/20 [History Last Taken Unknown] amlodipine 2.5 mg tablet 2.5 mg PO DAILY 11/30/20 [History Last Taken Unknown] aspirin 81 mg tablet,delayed release 81 mg PO DAILY 11/30/20 [History Last Taken Unknown] atorvastatin 20 mg tablet 20 mg PO DAILY 11/30/20 [History Last Taken Unknown] biotin 10,000 mcg capsule mcg PO 11/30/20 [History Last Taken Unknown] buspirone 5 mg tablet 5 mg PO BID 11/30/20 [History Last Taken Unknown] calcium carbonate 600 mg calcium (1,500 mg) tablet 600 mg PO DAILY 11/30/20 [History Last Taken Unknown] cholecalciferol (vitamin D3) 50 mcg (2,000 unit) capsule 50 mcg PO DAILY 11/30/20 [History Last Taken Unknown] denosumab 60 mg/mL subcutaneous syringe 60 mg SUBCUT [id number] 11/30/20 [History Last Taken Unknown] gabapentin 300 mg capsule 900 mg PO TID cap 11/30/20 [History Last Taken Unknown] glipizide 10 mg tablet 10 mg PO BID 11/30/20 [History Last Taken Unknown] leflunomide 20 mg tablet 20 mg PO DAILY PRN 11/30/20 [History Last Taken Unknown] levothyroxine 100 mcg capsule 100 mcg PO DAILY 11/30/20 [History Last Taken Unknown] magnesium 250 mg tablet 250 mg PO DAILY 11/30/20 [History Last Taken Unknown] mecobalamin (vitamin B12) 1,000 mcg disintegrating tablet,sublingual 1,000 mcg SUBLINGUAL DAILY 11/30/20 [History Last Taken Unknown] multivitamin with minerals-folic acid 200 mcg chewable tablet tab PO 11/30/20 [History Last Taken Unknown] pantoprazole 40 mg tablet,delayed release 40 mg PO DAILY 11/30/20 [History Last Taken Unknown] sitagliptin 50 mg tablet 100 mg PO DAILY tab 11/30/20 [History Last Taken Unknown] upadacitinib 15 mg tablet,extended release 24 hr 15 mg PO DAILY 11/30/20 [History Last Taken Unknown] hydrocodone-acetaminophen 1 tab PO Q6H PRN PRN 3 Days #10 tablet 12/29/20 [Rx Last Taken Unknown] levothyroxine 100 mcg PO DAILY #30 cap 03/02/21 [Rx Last Taken Unknown] Allergy/AdvReac Type Severity Reaction Status Date / Time Penicillins [PCN] Allergy PT UNSURE Verified 03/02/21 20:42 OF REACTION Surgical History History of replacement of both shoulder joints Social History household members: none housing: house pets and animals: Yes pets and animals: dog(s) Smoking Status: Former smoker alcohol intake: never what type of physical activity do you participate in: none do you feel safe at home: Yes ROS ROS ED ROS Narrative Generalized weakness and diarrhea. Fatigue. Review of Systems ROS Unobtainable: Denies due to encephalopathy Constitutional Constitutional ED: Denies chills or fever(s) Eyes Eyes: Denies change in vision ENT ENT ED: Denies ear pain, rhinorrhea or sore throat Cardiovascular Cardiovascular: Denies chest pain or palpitations Respiratory/Chest Respiratory/Chest: Denies cough or dyspnea Gastrointestinal Gastrointestinal: Reports diarrhea; Denies abdominal pain, nausea or vomiting Genitourinary Genitourinary ED: Denies dysuria or hematuria Musculoskeletal Musculoskeletal: Denies myalgias Integumentary Denies rash Neurologic Neurologic: Denies headache(s) Psychiatric Psychiatric: Denies depression Endocrine Endocrinology: Denies polyuria Allergic/Immunologic Allergic/Immunologic ED: Denies urticaria EXAM Physical Exam Narrative Exam Narrative: 76-year-old female no acute distress vital signs stable afebrile. Pulse ox 90% on room air. She does not look septic or toxic. She does not look significantly dehydrated. HEENT exam unremarkable. No facial droop. Normal speech. Moist mucous membranes. Lungs clear to auscultation bilaterally. Heart regular rhythm rate about 95 no murmur. Chest nontender. Abdomen soft nontender. Moving all 4 extremities. Normal business performance specialist strength bilaterally. Normal dorsi plantar flexion. Neurologically she is awake and alert with no focal motor deficits. Answering questions and following commands. Const Vital Signs: 03/02/21 20:39 03/02/21 21:37 Temperature 97.6 F L Temperature Source Temporal Pulse Rate 102 H Respiratory Rate 18 Respiratory Pattern Normal Blood Pressure 177/69 H Blood Pressure Mean 105 Pulse Ox 98 Oxygen Delivery Method Room Air Positive well nourished and well developed; Negative for obese, cachectic, contractures or unkempt General Appearance ED: well developed and NAD; Negative for unkempt, cachectic, contractures, cyanotic, diaphoretic or pallor Nutritional Appearance: Negative for cachectic or obese HEENT Reports moist mucous membranes Negative for trauma or tenderness Eyes PERRL and EOMs intact bilaterally General Eye ED: Negative for pale conjunctiva or scleral icterus Neck no lymphadenopathy, supple and no JVD General: Negative for tenderness Chest Wall inspection of chest normal and palpation of chest normal Resp normal respiratory effort and clear to auscultation bilaterally Effort and Inspection: Negative for pain with movement Auscultation: Negative for rales, rhonchi or wheezes Cardio regular rate, regular rhythm, S1 normal heart sound, S2 normal heart sound and no murmurs GI normal to inspection, nondistended, normoactive bowel sounds, non-tender, non-distended and no masses Inspection: Negative for abdominal distention Auscultation: normoactive bowel sounds Palpation: soft; Negative for tender, guarding or rebound tenderness present Back/Spine no CVA tenderness General Back: Negative for CVA tenderness Cervical Spine: Negative for cervical spine tenderness Thoracic Spine / Upper Back: Negative for thoracic spinal tenderness or paraspinal muscle tenderness Lumbar Spine / Lower Back: Negative for lumbar spinal tenderness Extremity normal to inspection General Extremety ED: Negative for edema or tenderness General Extremity: Negative for edema Neuro oriented x3 and CN's II-XII intact bilaterally Sensorium / Orientation: alert; Negative for orientation impaired, lethargic or stuporous Motor Exam: strength 5/5 throughout Psych mental status grossly normal Appearance: Negative for unkempt Attitude: No agitated Mood & Affect: Negative for depressed, anxious or tearful Skin no rashes or lesions noted, no wounds and No skin turgor normal General Skin Exam: Negative for elasticity normal, jaundice or pallor MDM MDM MDM Narrative Medical decision making narrative: 76-year-old female who has had increasing fatigue recently. Significant weight loss. She has no history of any malignancy other than skin cancer. Screening labs are being obtained. Exam is benign. Treated with IV fluids. Discussed with the patient and her son her lab results at 1030. She forgot to tell me that she does have a history of hypothyroidism and stopped her medications about a month ago. That is when she started feeling poorly. She will be restarted on Synthroid and follow-up with her primary care physician to have her TSH rechecked. If she is not improving we may have to look for other causes of her weight loss. Lab Data Attestation: I reviewed the patient's lab results. Lab results narrative: CBC unremarkable. White count of 5. Hemoglobin 13.2. Hematocrit 40. Platelets 234. Chemistries show potassium of 3.1 gap of 12 BUN of 15 creatinine 1.2 liver enzymes unremarkable. Glucose of 226. No significant change in her CBC or chemistries from other recent lab. The TSH is elevated 7.33. Labs: Laboratory Results - last 24 hr 03/02/21 03/02/21 21:30 21:30 WBC 5.9 RBC 4.66 Hgb 13.2 Hct 40.4 MCV 86.7 MCH 28.3 MCHC 32.7 RDW Std Deviation 46.7 H RDW Coeff of Manpreet 14.8 H Plt Count 234 MPV 11.3 Immature Gran % (Auto) 0.300 Neut % (Auto) 62.2 Lymph % (Auto) 23.4 [place] % (Auto) 11.1 H Eos % (Auto) 1.5 Baso % (Auto) 1.5 H Absolute Neuts (auto) 3.6 Absolute Lymphs (auto) 1.37 Nucleated RBC % 0 Sodium 136 Potassium 3.1 L Chloride 103 Carbon Dioxide 21.0 Anion Gap 12 BUN 15 Creatinine 1.22 H Estim Creat Clear Calc 38.75 Est GFR (MDRD) Af Amer 55 L Est GFR (MDRD) Non-Af 46 L BUN/Creatinine Ratio 12.3 Glucose 226 H Calcium 9.4 Total Bilirubin 0.50 AST 27 ALT 17 Alkaline Phosphatase 81 Total Protein 7.2 Albumin 3.0 L Globulin 4.2 Albumin/Globulin Ratio 0.7 L TSH 7.33 H Radiography Chest X-Ray - ED: 1 View, Read by ED Physician, Heart, Lungs, Mediastinum, Bony Structures, No Acute Disease and Chronic Changes Diagnostic Testing: Clinical Impression(s) from Imaging Studies Chest X-Ray 03/02/21 21:45 IMPRESSION: No acute disease. Electronically Signed: Kd Vo MD at 22:14 EST Tel , Service support , Chest x-ray portable 1 view shows no acute abnormality. Rhythm Strip Rhythm Strip: Sinus Rhythm Rate: 87 Ectopy: None EKG Initial EKG: Attestation: I personally reviewed and interpreted this EKG as follows: Interpretation: Sinus Rhythm and No Acute Injury Pattern Comments: Normal sinus rhythm rate 87 no acute signs of angina or ischemia. There may be an old OH present. There is no EKG available for comparison. Prior EKG tracings: not available for review Discharge Plan Triage Chief Complaint: General Illness ED Provider: Terrance Balbuena Dx/Rx/DC Orders Clinical Impression: Hypothyroidism, Medical non-compliance, Acute hypokalemia Instructions: ED Hypothyroidism Prescriptions: New levothyroxine 100 mcg capsule 100 mcg PO DAILY Qty: 30 RF: 0 No Action allopurinol 100 mg tablet 100 mg PO BID RF: 0 amlodipine 2.5 mg tablet 2.5 mg PO DAILY RF: 0 atorvastatin 20 mg tablet 20 mg PO DAILY RF: 0 biotin 10,000 mcg capsule PO RF: 0 buspirone 5 mg tablet 5 mg PO BID RF: 0 gabapentin 300 mg capsule 900 mg PO TID RF: 0 glipizide 10 mg tablet 10 mg PO BID RF: 0 Januvia 50 mg tablet 100 mg PO DAILY RF: 0 levothyroxine 100 mcg capsule 100 mcg PO DAILY RF: 0 leflunomide [Arava] 20 mg tablet 20 mg PO DAILY PRN (Reason: Pain) RF: 0 pantoprazole 40 mg tablet,delayed release (DR/EC) 40 mg PO DAILY RF: 0 Rinvoq 15 mg tablet extended release 24 hr 15 mg PO DAILY RF: 0 Prolia 60 mg/mL syringe 60 mg subcut [id number] RF: 0 aspirin 81 mg tablet,delayed release (DR/EC) 81 mg PO DAILY RF: 0 mecobalamin (vitamin B12) 1,000 mcg tablet,disintegrating 1,000 mcg sublingual DAILY RF: 0 cholecalciferol (vitamin D3) 50 mcg (2,000 unit) capsule 50 mcg PO DAILY RF: 0 magnesium 250 mg tablet 250 mg PO DAILY RF: 0 Vitajoy Adult Multi 200 mcg tablet,chewable PO RF: 0 calcium carbonate [Calcium 600] 600 mg calcium (1,500 mg) tablet 600 mg PO DAILY RF: 0 hydrocodone-acetaminophen 5-325 mg tablet 1 tab PO Q6H PRN (Reason: pain) 3 Days Qty: 12 RF: 0 hydrocodone-acetaminophen 5-325 mg tablet 1 tab PO Q6H PRN PRN (Reason: Pain) 3 Days Qty: 10 RF: 0 Primary Care Provider: Toyin Chau Referrals: Toyin Chau MD [Primary Care Provider] - 1-2 Weeks Activity Restrictions/Additional Instructions: Call for follow-up in her primary care physician either Dr. Chau or Dr. Mendez in 1 to 2 weeks to have your thyroid level rechecked. Take your thyroid medication every day. You cannot just stop this medication you will get very sick and not taking it. Disposition Disposition: Home, Self Care
[2021-03-02] MEDS: 0.9% Normal Saline 1,000 ML 1000 ML IV (21:37)
--- NOTE | 2021-03-02 21:45 | RAD_ITS ---
EXAM: XR CHEST, 1 VIEW CLINICAL INDICATION: weakness TECHNIQUE: Frontal view of the chest. This report was created using [email or web address] report generation technology. COMPARISON: None. FINDINGS: LUNGS AND PLEURAL SPACES: Unremarkable. No consolidation or edema. No pneumothorax. No effusion. HEART: Unremarkable. Cardiac silhouette not enlarged. MEDIASTINUM: Small to moderate size hiatal hernia suggested. BONES/JOINTS: Bilateral shoulder arthroplasties with satisfactory alignment and no hardware complications. Degenerative changes of the spine. SOFT TISSUES: Unremarkable. RAD/Chest 1 View (Portable) IMPRESSION: No acute disease. Electronically Signed: Kd Vo MD at 22:14 EST Tel , Service support ,
[2021-03-02 22:17] LABS: Absolute Lymphocyte Count 1.37 X10^3/uL (0.83-4.51); Absolute Neutrophil Count 3.6 X10^3/uL (2.0-7.7); Basophil# 0.09 X10^3/uL; Basophil% 1.5 % (0-1); Eosinophil# 0.09 X10^3/uL; Eosinophils% 1.5 % (0-5); Hematocrit 40.4 % (37-47); Hemoglobin 13.2 g/dL (12.0-15.0); Lymphocyte # 1.37 X10^3/ul (0.83-4.51); Lymphocyte % 23.4 % (19-41); Mean Corp Hgb Conc 32.7 g/dL (32-36); Mean Corpuscular Hgb 28.3 pg (27.0-32.0); Mean Corpuscular Volume 86.7 fL (81-99); Mean Platelet Vol. 11.3 fl (6.2-12.0); Monocyte# 0.65 X10^3/uL; Monocyte% 11.1 % (0-10); NRBC Flagged by Analyzer 0 % (0-5); Neutrophil # 3.64 X10^3/uL (2.7-7.7); Neutrophil % 62.2 % (47-70); Platelet Count 234 K/mm3 (150-450); RBC Distribution Width CV 14.8 % (11.6-14.6); RBC Distribution Width SD 46.7 fl (35.1-43.9); Red Blood Count 4.66 M/mm3 (4.2-5.4); White Blood Count 5.9 K/mm3 (4.4-11.0)
[2021-03-02 22:21] LABS: ALB/GLOB Ratio 0.7 RATIO (0.9-2.4); AST(SGOT) 27 U/L (15-37); Alanine Aminotransfer ALT/SGPT 17 U/L (13-56); Alkaline Phosphatase 81 U/L (45-117); Anion Gap 12 (5-15); BUN 15 mg/dL (7-18); BUN/Creat Ratio 12.3 RATIO (10-20); Calcium,Total 9.4 mg/dL (8.5-10.1); Chloride 103 mmol/L (98-107); Creatinine, Serum 1.22 mg/dL (0.55-1.02); EST Glomerular Filtration Rate 46 mL/min (>60); Est Glom Filt Rate - Afr Amer 55 mL/min (>60); Estimated Creatinine Clearance 38.75 ml/min; Globulin 4.2 g/dL (2.2-4.2); Glucose 226 mg/dL (74-106); Potassium 3.1 mmol/L (3.5-5.1); Protein, Total 7.2 g/dL (6.4-8.2); Sodium Level 136 mmol/L (136-145); Thyroid Stim Hormone (TSH) 7.33 uIU/mL (0.358-3.74)
[2021-03-02 22:25] VITALS: BP 172/93; PULSE 80; RESP 14; O2SAT 99
[2021-03-02 23:30] VITALS: BP 186/78; PULSE 88; RESP 18; O2SAT 97
== END 2021-03-02 23:31 | disposition home or self-care (01) ==
PROVIDERS: Emergency Provider Emergency Medicine; PCP Internal Medicine; Visit Provider Emergency Medicine
DX: E03.9 Hypothyroidism, unspecified (principal); E87.6 Hypokalemia; Z91.19 Patient's noncompliance with other medical treatment and regimen; Z87.891 Personal history of nicotine dependence
CPT/HCPCS: 71045; 80053; 84443; 85025; 87426; 93005; 96360; 99284; J7030; A4216

== ENCOUNTER 2021-03-10 10:30 | Outpatient (RCR) | payer MEDICARE, SELFPAY ==
[2021-03-03 10:32] VITALS: TEMP 35.9; BMI 25.5
[2021-03-03 10:50] VITALS: BMI 25.5
[2021-03-03 11:20] VITALS: BMI 25.5
[2021-03-03 11:25] LABS: Bedside Glucose 163 mg/dL (70-110)
[2021-03-10 10:17] VITALS: BP 153/73; PULSE 100; RESP 20; TEMP 36.1; BMI 25.5
--- NOTE | 2021-03-10 12:04 | PN.PCM_ITS ---
History of Present Illness Date of Service: 03/10/21 Chief Complaint: right lower leg ulcer History of Wound: Veda is a pleasant 76-year-old female who presents to the wound healing center today (03/03/2021) for initial evaluation of a right lower leg ulcer. She recently moved to [place] from [place], and has established care with Dr. Mendez. She has a past medical history significant for type 2 diabetes mellitus, skin cancer, anxiety, gout, hypothyroidism, stage III CKD, rheumatoid arthritis, shoulder dislocation and osteoarthritis. She is a former smoker. She has no history of bleeding tendency or DVT. She was referred here by Dr. Mendez for bilateral gluteal ulcers and a right lower leg ulcer, though on evaluation her gluteal ulcers have healed. She states that she had a skin cancer removed from her right distal leg approximately 1 year ago, and the excision site has not healed since that time. She has not been performing any particular wound care for the ulcer site. It frequently dries/scabs over. She does not use any compression to her bilateral lower extremities. She is ambulatory with a walker. She is feeling unwell today, and has been feeling unwell for the past 3 to 4 weeks. She was seen in the ER yesterday. Per the patient, she has not been taking any of her diabetes or thyroid medications in the past month. She has had general malaise and poor appetite, as well as weight loss. Her labs from yesterday (03/02/2021) revealed the following: CBCD: Unremarkable CMP: Potassium 3.1 (L), creatinine 1.22 (H), est GFR 46 (L), glucose 226 (H) TSH: 7.33 (H) COVID-19 antigen: Negative An ESR and CRP from 12/16/2020 were normal. She has not had any recent vascular studies. The patient denies fever, chills. The patient has not had increased redness, swelling, or purulent/malodorous drainage from right lower leg ulcer. Progress of Wound: The patient's wound is improved in size and appearance today. She reports she has not been consistently compliant with the use of Aquacel Ag dressing changes; she has only been performing these every couple of days, and some days she does not use a dressing at all. She has also not been cleansing her wound with antibacterial soap and water between dressing changes. Her wound cultures were negative. The patient denies fever, chills, or decreased appetite. The patient has not had increased redness, swelling, or purulent/malodorous drainage from affected area. Objective Data Objective Data Vital Signs: Vital Signs Temp Pulse Resp BP 97 F L 100 20 H 153/73 H 03/10/21 10:17 03/10/21 10:17 03/10/21 10:17 03/10/21 10:17 Oxygen Delivery Method Room Air Weight: 163 lb Body Mass Index (BMI) 25.5 Lab / Micro Data Micro: Microbiology 03/03/21 11:40 Wound Abcess - Leg, Right Gram Stain - Final 03/03/21 11:40 Wound Abcess - Leg, Right Wound Culture - Final No growth aerobically. 03/03/21 11:40 Wound Abcess - Leg, Right Anaerobic Culture - Final No anaerobic bacteria isolated. Charges/Coding Procedures Integumentary 111xxx-113xx: 13124 Lexie subq tissue 20 sq cm/< Physical Exam Const alert and no apparent distress General Appearance: cooperative, well kempt and ill appearing Orientation / Consciousness: awake HEENT Head and Scalp: normocephalic and atraumatic Eyes EOMs intact bilaterally Neck supple Resp normal respiratory effort, normal air movement and no use of accessory muscles Cardio Peripheral Pulses: dorsalis pedis pulses present right diminished GI non-distended Extremity normal capillary refill, no joint enlargement and no calf tenderness General Extremity: edema bilateral lower extremity Details: mild; Negative for clubbing or cyanosis Peripheral Pulses: Yes dorsalis pedis pulses present right diminished Skin Wounds: wounds noted No malodorous Wound Narrative: Right distal leg ulcer with subcutaneous layer exposed. No tunneling, undermining, or probing to bone. Small amount of slough and devitalized tissue present. No periulcer erythema, warmth, or tenderness. No drainage noted. Neuro oriented x3, moves all extremities and no focal motor deficits Psych mental status grossly normal, cooperative and affect normal Debridement Note Debridement Note Wound debrided: Right lower leg ulcer Laterality: Right Type of Debridement: Excisional debridement Anesthesia Used: 4% Lidocaine Solution Depth: in the subcutaneous layer Percentage of wound debrided: 100 Instrument Used: 3mm curette Tissue Removed: Slough and devitalized tissue Severity: Fat Layer Exposed Amount of bleeding with debridement: Mild Bleeding Controlled with: Pressure Patient tolerated procedure: Patient tolerated procedure well Post-Debridement Measurements and Additional Note: Post-Debridement Measurements/Treatment - Nurse 1 - General Ulcer Assessment Start: 03/03/21 10:29 Freq: Status: Active Protocol: EMIL Activity Type Activity Date Activity User E-Sign Co-Sign Detail Recorded Client Recorded Date Recorded By Document 03/03/21 10:32 [id number] 03/03/21 10:36 Edit Result 03/03/21 10:32 JF (1) [id number] 03/03/21 11:21 Document 03/03/21 10:50 [id number] 03/03/21 10:52 Document 03/03/21 11:20 [id number] 03/03/21 11:21 Document 03/10/21 10:17 MT [id number] 03/10/21 10:19 MT Edit Result 03/10/21 10:17 MT (2) [id number] 03/10/21 10:39 MT (1) Finger Stick Blood Sugar(mg/dl) (if => 165 indicated): Blood Sugar => Done During this => Visit (2) Temperature (97.8 F-99.1 F) => 97 F L Pulse Rate (60-100) => 100 Blood Pressure (90/60-120/80) => 153/73 H Blood Pressure Mean (mm Hg) => 99 Left Footwear => Regular Shoe Right Footwear => Regular Shoe 03/03/21 03/03/21 03/03/21 10:32 10:50 11:20 - Today's Visit Information Type of service Initial Visit Arrival Mode Ambulatory, Wheelchair Patient Identification Verified (Name & Yes ) Patient Requires Transmission-Based No Precautions Finger Stick Blood Sugar(mg/dl) (if 165 indicated): Blood Sugar Done During this Visit Height and Weight Height 5 ft 7 in Weight 163 lb Weight in Pounds 163.0 lbs Weight Measurement Method Estimated by Patient Body Mass Index (BMI) 25.5 25.5 25.5 BMI Classification Overweight Overweight Overweight BSA - Kristal 1.85 Vital Signs Temperature (97.8 F-99.1 F) 96.7 F L Temperature Source Temporal Pulse Rate (60-100) Pulse Location Respiratory Rate (12-18) Respiratory rate source Oxygen Delivery Method Blood Pressure (90/60-120/80) Blood Pressure Mean (mm Hg) Source Position Blood Pressure Location Has dressing in place as prescribed Has compression in place as prescribed Has offloadiing in place as prescribed History Since Last Visit- (Skip if this is Patient's initial visit) Left Footwear Regular Shoe Right Footwear Regular Shoe Pain Scale: 0-10 Numeric Is Patient Pain Free? Yes Yes Yes Lower Extremity Assessment/ Foot Assessment/ Toe Nail Assessment Left -Posterior Tibial Palpable Yes -Posterior Tibial Doppler Monophasic -Dorsalis Pedis Palpable Yes -Dorsalis Pedis Doppler Monophasic -Thick Yes -Discolored No -Deformed No -Improper Length & Hygeine No Right -Posterior Tibial Palpable Yes -Dorsalis Pedis Palpable Yes -Dorsalis Pedis Doppler Monophasic -Thick Yes -Discolored No -Deformed No -Improper Length & Hygeine No Neuropathy Assessment Feet - Top Side and Bottom <Entered> (a) Communication Assessment Preferred language Maltese Pre Press Operator Required No Able to Read Yes Able to Write Yes Communication Tools None Right Hearing Abillity Hard of Hearing ,Use of Hearing Aid Left Hearing Abillity Hard of Hearing ,Use of Hearing Aid Visual Assistive Devices Glasses Teaching Assessment Preferences Verbal,Written, Audio/Visual, Demonstration Barriers to Learning None Readiness To Learn Good Willingness to Engage in Self Management High Activies Readiness to Engage in Self Management High Activities Anxiety Level Calm Cooperation Cooperative Perception Coherent Interest in Health Problem Asks Questions Education Importance Acknowledges Need Does Patient Smoke tobacco or other No substances Smoking Status Never smoker Is Patient Diabetic Yes Functional Assessment Recent Decline in Ability to Perform Ambulation, Bathing,Eating/ Feeding,Lower Body Dressing, Transferring Culture/Judaism/Director Of Market Intelligence Cultural/Judaism Needs that may affect No Treatment Plan Director Of [employer] to contact place of [facility] No Teaching: Wound Center [facility] Orientation/ Contacting Physician -Person Taught Patient,Family -Teaching Method Discussion, Demonstration -Response to teaching Return demonstration, Verbalize understanding 03/10/21 10:17 - Today's Visit Information Type of service Follow-up Visit (Physician/BOARD LAYER ) Arrival Mode Patient Identification Verified (Name & ) Patient Requires Transmission-Based Precautions Finger Stick Blood Sugar(mg/dl) (if indicated): Blood Sugar Height and Weight Height Weight Weight in Pounds Weight Measurement Method Body Mass Index (BMI) 25.5 BMI Classification Overweight BSA - Kristal Vital Signs Temperature (97.8 F-99.1 F) 97 F L Temperature Source Temporal Pulse Rate (60-100) 100 Pulse Location Monitor Respiratory Rate (12-18) 20 H Respiratory rate source Observation Oxygen Delivery Method Room Air Blood Pressure (90/60-120/80) 153/73 H Blood Pressure Mean (mm Hg) 99 Source Monitor Position Sitting Blood Pressure Location Left Arm Has dressing in place as prescribed Yes Has compression in place as prescribed Yes Has offloadiing in place as prescribed Yes History Since Last Visit- (Skip if this is Patient's initial visit) Left Footwear Regular Shoe Right Footwear Regular Shoe Pain Scale: 0-10 Numeric Is Patient Pain Free? Yes Lower Extremity Assessment/ Foot Assessment/ Toe Nail Assessment Left -Posterior Tibial Palpable -Posterior Tibial Doppler -Dorsalis Pedis Palpable -Dorsalis Pedis Doppler -Thick -Discolored -Deformed -Improper Length & Hygeine Right -Posterior Tibial Palpable -Dorsalis Pedis Palpable -Dorsalis Pedis Doppler -Thick -Discolored -Deformed -Improper Length & Hygeine Neuropathy Assessment Feet - Top Side and Bottom Communication Assessment Preferred crimping machine operator Required Able to Read Able to Write Communication Tools Right Hearing Abillity Left Hearing Abillity Visual Assistive Devices Teaching Assessment Preferences Barriers to Learning Readiness To Learn Willingness to Engage in Self Management Activies Readiness to Engage in Self Management Activities Anxiety Level Cooperation Perception Interest in Health Problem Education Importance Does Patient Smoke tobacco or other substances Smoking Status Is Patient Diabetic Functional Assessment Recent Decline in Ability to Perform Culture/Judaism/Director Of Market Intelligence Cultural/Judaism Needs that may affect Treatment Plan Director Of Market Intelligence to contact place of [employer] Teaching: Wound Center [facility] Orientation/ Contacting Physician -Person Taught -Teaching Method -Response to teaching (a) 1 - positive 2 - positive 3 - positive - Nurse 1 - General Ulcer Measurement Start: 03/03/21 10:29 Freq: Status: Active Protocol: Activity Type Activity Date Activity User E-Sign Co-Sign Detail Recorded Client Recorded Date Recorded By Document 03/03/21 10:32 BRIAN [id number] 03/03/21 10:36 BRIAN Edit Result 03/03/21 10:32 BRIAN (1) [id number] 03/03/21 10:46 JF Document 03/10/21 10:17 MT [id number] 03/10/21 10:19 MT Edit Result 03/10/21 10:17 MT (2) [id number] 03/10/21 10:39 MT (1) 1-right medial lower leg - Combined with other wound => No - Current Size (cm) - Length => 0.5 - Current Size (cm) - Width => 0.4 - Current Size (cm) - Depth => 0.1 - Total Square Cm => 0.20 - Photo Taken => Yes - Epithelialization => Small 1-33% - Tunneling => No - Undermining/Tunneling => No - Circular Undermining => No - Exudate Amt => None Present - Wound Margin => Flat & Intact - Granulation Amt => None Present (0%) - Slough/Fibrin => No - Necrosis Amt => Large (67-100%) - Necrotic Tissue Type => Adherent Slough - Structure Exposed => N/A - Texture (Pina-wound Skin Appearance) => Assessed,Localized => Edema - Moisture (Pina-wound Skin Appearance) => Assessed,Dry/Scaly - Color (Pina-wound Skin Appearance) => Assessed - Temperature (Pina-wound Skin => No Abnormality (Pt Appearance) => Warm) - Tenderness on Palpation (Pina-wound => Yes Skin Appearance) - Ulcer Cleansing => Rinsed/Irrigated => with Saline - Foul Odor after Cleansing => No - Anesthetic Used => 4% Lidocaine => Solution Lower Limb Edema Present NA => Yes Right Calf (cm) => 33.6 Right Ankle (cm) => 22.5 Left Calf (cm) => 35.8 Left Ankle (cm) => 21.2 (2) 1-right medial lower leg - Current Size (cm) - Length => 0.1 - Current Size (cm) - Width => 0.1 - Current Size (cm) - Depth => 0.1 - Total Square Cm => 0.01 - Anesthetic Used => 4% Lidocaine => Solution Left Calf (cm) 35.8 => Left Ankle (cm) 21.2 => 03/03/21 03/10/21 10:32 10:17 Wound Center Nurse 1 1-right medial lower leg -Combined with other wound No -Current Size (cm) - Length 0.5 0.1 -Current Size (cm) - Width 0.4 0.1 -Current Size (cm) - Depth 0.1 0.1 -Total Square Cm 0.20 0.01 -Photo Taken Yes -Epithelialization Small 1-33% -Tunneling No -Undermining/Tunneling No -Circular Undermining No -Exudate Amt None Present -Wound Margin Flat & Intact -Granulation Amt None Present (0 %) -Slough/Fibrin No -Necrosis Amt Large (67-100%) -Necrotic Tissue Type Adherent Slough -Structure Exposed N/A -Texture (Pina-wound Skin Appearance) Assessed, Localized Edema -Moisture (Pina-wound Skin Appearance) Assessed,Dry/ Scaly -Color (Pina-wound Skin Appearance) Assessed -Temperature (Pina-wound Skin No Abnormality Appearance) (Pt Warm) -Tenderness on Palpation (Pina-wound Yes Skin Appearance) -Ulcer Cleansing Rinsed/ Irrigated with Saline -Foul Odor after Cleansing No -Anesthetic Used 4% Lidocaine 4% Lidocaine Solution Solution Lower Limb Edema Present Yes Yes Right Calf (cm) 33.6 33.6 Right Ankle (cm) 22.5 22.5 Left Calf (cm) 35.8 Left Ankle (cm) 21.2 WC - Nurse 2 - General Ulcer CM Notes Start: 03/03/21 10:29 Freq: Status: Active Protocol: Activity Type Activity Date Activity User E-Sign Co-Sign Detail Recorded Client Recorded Date Recorded By Document 03/03/21 12:13 SARAH [id number] 03/03/21 12:17 PL 03/03/21 12:13 Wound Center Nurse 2 1-right medial lower leg -Time 11:35 -Correct Patient Yes -Correct Side, Site, Position Yes -Correct Procedure Yes -Procedure Performed Yes -Type of Procedure Debridement -Clinical Debridement Subcutaneous -Tissue Removed Subcutaneous -Post Debridement (cm) - Length 1.0 -Post Debridement (cm) - Width 0.7 -Post Debridement (cm) - Depth 0.1 -Total Square (Post) (cm) 0.70 -Area of Debridement (cm) - Length 1.0 -Area of Debridement (cm) - Width 0.7 -Total Square (Area) (cm) 0.70 -Tunneling No -Undermining/Tunneling No -Circular Undermining No -Wound/Ulcer Outcome Not Healed -Ulcer Cleansing Rinsed/ Irrigated with Saline -Foul Odor after Cleansing No -Bioengineered Tissue No -Bleeding Controlled with Pressure -Treatment Response Procedure Tolerated Well -Debridement - Subq, 1st 20sq cm Yes Pain Scale: 0-10 Numeric Is Patient Pain Free? Yes WC - Nurse 3 - General Ulcer D/C NN Start: 03/03/21 10:29 Freq: Status: Active Protocol: Activity Type Activity Date Activity User E-Sign Co-Sign Detail Recorded Client Recorded Date Recorded By Document 03/03/21 11:48 WA [id number] 03/03/21 11:54 AK Document 03/10/21 11:01 WA [id number] 03/10/21 11:02 WA 03/03/21 03/10/21 11:48 11:01 Wound Care Nurse 3 1-right medial lower leg -Ulcer Cleansing Rinsed/ Rinsed/ Irrigated with Irrigated with Saline Saline -Foul Odor after Cleansing No No -Negative Pressure Wound Therapy N/A N/A -Primary Dressing Applied Aquacel Extra Aquacel AG 4x4 -Primary Dressing Covered/Secured with Dry Gauze, Dry Gauze, Secured with Secured with Tape Tape -Aquacel Extra 1 -Aquacel AG 4x4 1 Left -Lotion applied to leg before No No compression wrap -Tubular Bandage Single Layer Single Layer -Size of Tubigrip Used Size E Size E -Size E ($) 1 1 Pain Scale: 0-10 Numeric Is Patient Pain Free? Yes Yes WC - Visit Discharge Discharge Condition Unstable Stable Ambulatory Status Wheelchair Wheelchair Transportation Private Auto Private Auto Accompanied by daughter daughter in law Medication Reconcilliation completed & Yes No provided to patient/care provider Clinical Summary of Care Provided Yes Yes Notes: Patient not feeling well. She was shaky and complaints of chills and not feeling right. Vitals all stayed same as admission. Her bs was checked by another nurse and patient's daughter reported to me 140. Snacks/ protein shake were given. She was in ER yesterday. She had not been taking her thyroid meds for a month. She also has no appetite ( weight loss) She is to follow up with Dr. Guevara. 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: CODE(S): E11.622 - Type 2 diabetes mellitus with other skin ulcer; L97.912 - Non-pressure chronic ulcer of unspecified part of right lower leg with fat layer exposed (2) Type 2 diabetes mellitus with chronic kidney disease: CODE(S): E11.22 - Type 2 diabetes mellitus with diabetic chronic kidney disease QUALIFIERS: Diabetes mellitus superintendent terminal insulin use: without chcf use Chronic kidney disease stage: stage 3 (moderate) Chronic kidney disease stage 3 subtype: unspecified whether 3a or 3b Qualified Code(s): E11.22 - Type 2 diabetes mellitus with diabetic chronic kidney disease; N18.30 - Chronic kidney disease, stage 3 unspecified (3) CKD (chronic kidney disease), stage III: CODE(S): N18.30 - Chronic kidney disease, stage 3 unspecified QUALIFIERS: Chronic kidney disease stage 3 subtype: unspecified whether 3a or 3b Qualified Code(s): N18.30 - Chronic kidney disease, stage 3 unspecified (4) Hypothyroidism: CODE(S): E03.9 - Hypothyroidism, unspecified QUALIFIERS: Hypothyroidism type: unspecified Qualified Code(s): E03.9 - Hypothyroidism, unspecified (5) Medical non-compliance: CODE(S): Z91.19 - Patient's noncompliance with other medical treatment and regimen (6) History of skin cancer: CODE(S): Z85.828 - Personal history of other malignant neoplasm of skin PLAN: Debridement performed today in clinic as annotated above. Aquacel Ag applied to distal right lower extremity ulcer. Single-layer Tubigrip applied to right lower extremity. At home wound-care instructions: Change Aquacel Ag dressing once daily or more frequently as needed due to contamination. Wash wounds daily with antibacterial soap and water, rinse and dry thoroughly before each dressing change. Compression: Single-layer Tubigrip to be worn daily. Off-loading: The patient was instructed to avoid pressure and friction on the affected areas. Reposition every 2 hours at minimum. Avoid prolonged standing and/or dangling of legs. When seated, feet should be elevated at chest level. Frequent ambulation is encouraged. Diet: Patient encouraged to increase protein intake while taking caution to avoid high carbohydrate and/or sugar intake. Labs/cultures/imaging: Wound cultures were negative. Lab work reviewed as annotated above. Vascular studies deferred for the time being. Follow-up: Return to clinic in 2 weeks for re-evaluation. Return sooner or report to the emergency room should symptoms worsen, or new symptoms arise. Note: [employer] speech recognition supervisor painting department software was used to create portions of this document. Sound-alike and misspelled words, as well as other supervisor painting department errors may be contained in the documentation.
== END 2021-03-13 23:59 ==
LOC: WC 10:30
PROVIDERS: PCP Internal Medicine; Visit Provider Nurse Practitioner Family
DX: E11.622 Type 2 diabetes mellitus with other skin ulcer (principal); L97.912 Non-pressure chronic ulcer of unspecified part of right lower leg with fat layer exposed; M06.9 Rheumatoid arthritis, unspecified; E11.22 Type 2 diabetes mellitus with diabetic chronic kidney disease; N18.30 Chronic kidney disease, stage 3 unspecified; Z91.19 Patient's noncompliance with other medical treatment and regimen; E03.9 Hypothyroidism, unspecified; F41.9 Anxiety disorder, unspecified; Z87.891 Personal history of nicotine dependence; Z79.82 Long term (current) use of aspirin; Z79.890 Hormone replacement therapy; Z79.84 Long term (current) use of oral hypoglycemic drugs; Z85.828 Personal history of other malignant neoplasm of skin; M10.9 Gout, unspecified; E66.3 Overweight; Z68.25 Body mass index [BMI] 25.0-25.9, adult
CPT/HCPCS: 11042; 82962; 87070; 87075; 87205; 99213; G0463